=== PATIENT | female | born 1995 | race Caucasian/White ===

== ENCOUNTER 2022-04-03 11:06 | Emergency (ER) | payer MEDICAID, SELFPAY ==
[2022-04-03 11:22] VITALS: BP 129/58; PULSE 100; RESP 18; TEMP 36.3; O2SAT 96; BMI 37.8
--- NOTE | 2022-04-03 11:36 | CRLHL7_ITS ---
For Patients: As a result of the Century Cures Act, medical imaging exams and procedure reports are released immediately into your electronic medical record. You may view this report before your referring provider. If you have questions, please contact your health care provider. Indication: Shortness of breath Technique: Portable AP chest radiograph. Comparison: None. Findings: Mildly reduced lung volumes. No focal pulmonary opacity, pneumothorax, or pleural effusion. Normal cardiac and mediastinal contours. Impression: No acute cardiopulmonary findings. Dictated by Alvin Begreron MD @ 04/03/2022 11:48:47 AM Dictated by: Alvin Bergeron MD @ 04/03/2022 11:48:54 (Electronically Signed)
--- NOTE | 2022-04-03 11:42 | ED_ITS ---
HPI - General Adult General Date Seen: 04/03/22 Chief complaint: Cough Stated complaint: Chest tightness/cough/fever Time Seen by Provider: 04/03/22 11:16 Source: patient History of Present Illness HPI narrative: This 18-year-old who notes 1 week of congestion, cough, shortness of breath and fever up to 102. Her daughter is sick with RSV and also had pneumonia. She says that she is frustrated because it is been a week and she is not getting better. She says she has had problems with asthma in the past when his allergy season. Not aware of any current wheezing. She does not smoke. No other medical history. Stride NyQuil and some other [id number] cough medicine and it does not work. She continues to cough. Related Data Home Medications Medication Instructions Recorded Confirmed No Known Home Medications 04/03/22 04/03/22 Allergies Allergy/AdvReac Type Severity Reaction Status Date / Time No Known Drug Allergies Allergy Verified 04/03/22 11:21 Review of Systems Status of ROS: Reports: 6 or more systems reviewed and unremarkable except as noted in History and below Exam Narrative: Exam Narrative: Vital signs as noted above. In general, an alert, well-appearing patient. Head: Normocephalic, atraumatic. Eyes: Pupils are equal reactive. Extraocular movements are full. Conjunctivae are normal. ENT: Mucous membranes are moist. Throat is normal. Neck: Supple without lymphadenopathy. Heart: Regular rate and rhythm. No murmur or rub. Lungs: Clear bilaterally. No increased work of breathing, crackles or wheezes. Abdomen: Soft and nontender. No organomegaly. Extremities: Well perfused. No edema. No calf tenderness. Pulses intact. Neurologic: Patient is alert and oriented to person and place. Speech is fl uent. Face is symmetric. Moves all extremities equally. Affect: Normal. Skin: Warm and dry. Well perfused. Const: Vital Signs, click to edit/add: Vital Signs - 24 hr 04/03/22 11:22 Temperature 97.4 F L Pulse Rate [Right Pulse Oximeter] 100 Respiratory Rate 18 Blood Pressure [Ri ght Upper Arm] 129/58 L Pulse Oximetry 96 Oxygen Delivery Me thod Room Air Documenting provider has reviewed patient's vital signs: yes Course Course Hospital Course: Afebrile here but reports ongoing high fevers at home, we will go ahead and get a chest x-ray just to make sure that that is clear. Lungs are clear here I do not hear any active wheezing right now but I am going to try a neb here and see if she feels that is helpful for her coughing. If so, she may benefit from albuterol and prednisone at home. She does request something additional for cough at home and we can try Robitussin with codeine although advised her that there is nothing that will likely completely relieve her cough. Symptoms are likely viral and may take another week or even more to completely resolve. Most likely symptoms are caused by RSV will swab for COVID as well. Swabs are still pending. Chest x-ray by my review is negative, final radiology report is negative as well. I do not think this represents pneumonia or other acute bacterial process. She does feel significantly better after a neb here, suggesting that there is a component of bronchospasm. I think she will feel better with albuterol and prednisone at home so will prescribe those. If she is feeling worse rather than better would recommend coming back for re-evaluation, otherwise follow up with primary care if not improving over the expected time frame. Vital Signs Vital signs: Initial Vital Signs Temperature 97.4 F L 04/03/22 11:22 Temperature Source Temporal Artery Scan 04/03/22 11:22 Pulse Rate 100 04/03/22 11:22 Respiratory Rate 18 04/03/22 11:22 Blood Pressure 129/58 L 04/03/22 11:22 Blood Pressure Mean 81 04/03/22 11:22 Blood Pressure Position Sitting 04/03/22 11:22 Pulse Oximetry 96 04/03/22 11:22 Oxygen Delivery Method 04/03/22 11:22 Vital Signs Temperature 97.4 F L 04/03/22 11:22 Pulse Rate 100 04/03/22 11:22 Respiratory Rate 18 04/03/22 11:22 Blood Pressure 129/58 L 04/03/22 11:22 Pulse Oximetry 96 04/03/22 11:22 Oxygen Delivery Method 04/03/22 11:22 Temperature 97.4 F L 04/03/22 11:22 Pulse Rate 100 04/03/22 11:22 Respiratory Rate 18 04/03/22 11:22 Blood Pressure 129/58 L 04/03/22 11:22 Pulse Oximetry 96 04/03/22 11:22 Oxygen Delivery Method 04/03/22 11:22 Discharge Plan Discharge Prescriptions: No Action No Known Home Medications
[2022-04-03] MEDS: ALBUTEROL SULFATE 2.5 MG/3 ML VIAL.NEB NEB (11:50)
[2022-04-03 12:15] LABS: SARS PCR* Negative SARS-CoV-2 (Negative)
[2022-04-03 12:54] LABS: PCR FLU A Negative PCR FLU A (Negative); PCR FLU B Negative PCR FLU B (Negative); PCR RSV POSITIVE PCR RSV (Negative)
== END 2022-04-03 13:04 | disposition home or self-care (01) ==
PROVIDERS: Emergency Provider Emergency Medicine
DX: J98.01 Acute bronchospasm (principal)
CPT/HCPCS: 71045; 87502; 87634; 87635; 94640; 99283; 99284; 99285

== ENCOUNTER 2023-09-16 09:34 | Emergency (ER) | payer MEDICAID, SELFPAY ==
[2023-09-16 09:39] VITALS: BP 126/89; PULSE 93; RESP 18; TEMP 36.8; O2SAT 97; BMI 34.3
--- NOTE | 2023-09-16 10:45 | CT_ITS ---
Patient: ROXIE LANDEROS Facility:?[facility] Patient ID:?[id number] Site Patient ID:?[id number] Site :?[id number] Study:?CT-Abdomen/Pelvis W/ 98CC [id number]/[id number] 11:42:41 AM Ordering Physician:Denisha Shankar Final Report: INDICATION: Right lower/right pelvic pain. pain since surgery 2 weeks ago. (Sic) COMPARISON: None available at the time of this dictation. Reference made to a prior report dated 09/05/2022. TECHNIQUE: CT of the abdomen and pelvis with 98 cc of Isovue 370 intravenous contrast. Please note that all CT scans at this facility use dose modulation, iterative reconstruction, and/or weight-based dosing when appropriate to reduce radiation dose to as low as reasonably achievable. FINDINGS: ABDOMEN Liver: Normal hepatic attenuation. No suspicious focal hepatic lesion. No intrahepatic biliary ductal dilatation. Patent portal and hepatic veins. Gallbladder: Absent gallbladder. Normal common duct caliber. Pancreas: Normal pancreatic attenuation. No focal lesion. Normal duct caliber. No peripancreatic inflammatory changes. Spleen: Normal splenic attenuation. No suspicious focal lesion. Patent splenic artery and vein. Adrenal Glands: Symmetrical adrenal glands. No focal lesion of significance. Kidneys: Normal bilateral renal attenuation. No suspicious focal lesion. No obstructing nephrolith or dilatation of the intrarenal collecting systems. Patent renal arteries and veins. Nondilated upper urinary tracts. Gastrointestinal tract: Normal caliber, attenuation and wall thickness of the gastrointestinal tract. Mild sigmoid diverticulosis without inflammatory changes. Normal mesentery. Normal appendix. Vascular: Abdominal aorta and its major proximal branches including the celiac, superior mesenteric, inferior mesenteric, renal, and bilateral common iliac arteries are patent. Inferior vena cava, portal and superior mesenteric veins are patent. Additional findings: No incidental adenopathy. No significant ascites, free fluid or pneumoperitoneum. PELVIS No bladder lesion is identified. Centrally located T-shaped IUD. No abnormal free fluid. No incidental adenopathy. SKELETON AND BODY WALL No acute or suspicious incidental findings. LOWER THORAX Partially included lower thoracic wall, lungs, pleural spaces and mediastinum are otherwise without significant incidental findings. IMPRESSION: No imaging findings pertinent to the indication for the exam or significant unrelated findings. Normal appendix. Unremarkable uterus and bilateral ovaries. Please note that all CT scans at this facility use dose modulation, iterative reconstruction, and/or weight-based dosing when appropriate to reduce radiation dose to as low as reasonably achievable. Dictated by Collin Degroot MD @ 09/16/2023 12:32:32 PM Signed by:?Collin Degroot MD @09/16/2023 12:32:32 PM (Electronic Signature)
[2023-09-16] MEDS: LACTATED RINGERS 1000 ML 1,000 ML IV (11:17)
[2023-09-16] MEDS: ONDANSETRON 2 MG/ML inj 4 MG IVP (11:17)
[2023-09-16] MEDS: MORPHINE 4 MG/ML INJ IVP ×2 (11:17→13:28)
[2023-09-16 11:18] LABS: Basophils Absolute Auto 0.03 K/uL (0.00-0.30); Basophils Percent Auto 0.3 % (0.0-3.0); Eosinophils Absolute Auto 0.26 K/uL (0.00-0.50); Eosinophils Percent Auto 2.8 % (0.0-7.0); Hematocrit 45.5 % (33.0-51.0); Hemoglobin* 15.1 gm/dL (12.0-16.0); Immature Granulocytes Abs Auto 0.02 K/uL (0.00-0.30); Immature Granulocytes Pct Auto 0.2 %; Lymphocytes Absolute Auto 2.48 K/uL (0.90-2.90); Lymphocytes Percent Auto 26.4 % (20-44); Mean Corpuscular HGB Conc 33 gm/dL (32-36); Mean Corpuscular Hemoglobin 27 pg (26-34); Mean Corpuscular Volume 82 fL (80-100); Monocytes Percent Auto 6.7 % (0.0-11.0); Neutrophils Absolute Auto 5.98 K/uL (1.7-7.0); Neutrophils Percent Auto 63.6 % (42.0-72.0); Platelet Count* 363 K/uL (140-440); RDW Coefficient of Variation % 13.4 % (11.5-15.5); Red Blood Count 5.52 m/uL (4.00-5.20)
[2023-09-16 11:19] LABS: Appearance Urine Slightly Cloudy (Clear); Bilirubin Urine Negative (Negative); Blood Urine 3+ (Negative); Color Urine Yellow (Yellow); Glucose Urine Negative (Negative); Ketones Urine Negative (Negative); Leukocyte Esterase Urine Trace (Negative); Nitrite Urine Negative (Negative); Protein Urine Trace (Negative); Specific Gravity Urine 1.025 (1.000-1.030); Urobilinogen Urine 0.2 (0.2-1.0)
--- NOTE | 2023-09-16 11:21 | ED.ABDPAIN ---
HPI - Abdominal Pain General Date Seen: 09/16/23 Chief Complaint: Abdominal Pain Stated Complaint: lower abdomen pain Time Seen by Provider: 09/16/23 09:37 Source: patient Mode of arrival: ambulatory Limitations: no limitations History of Present Illness HPI narrative: Patient is a 27-year-old female with no pertinent medical problems presenting to the emergency department for right lower abdomen/right pelvic pain it has been going on for quite a while now. She was seen in OB Gyne provider through the [facility] and was told she has inflammation of her right fallopian tube and endometriosis which was removed surgically about 6 weeks ago. She continues to have the same pain without any improvement. She constantly has a 7/10 sharp stabbing pain that occasionally gets much worse causing her to become very nauseated. She has spoken to her surgeon about this and was told the pain in her vaginal bleeding is normal. She is concerned because she would expect spotting after this surgeries but not producing clots. She is hoping for a 2nd opinion in treatment for her pain and nausea. Denies fevers, chills, headache, vision changes, chest pain, shortness of breath, weakness, numbness. No other concerns noted at this time. She has already been through a round of antibiotics. Related Data Previous Rx's Medication Instructions Recorded ondansetron 4 mg disintegrating 4 mg PO Q6H #20 tabs 09/16/23 tablet oxycodone 5 mg tablet 5 mg PO Q6H PRN pain #12 tabs 09/16/23 Allergies Allergy/AdvReac Type Severity Reaction Status Date / Time No Known Drug Allergies Allergy Verified 09/16/23 11:37 Review of Systems Status of ROS Reports: 10 or more systems reviewed and unremarkable except as noted in History and below PFSH PFS Social History Non-prescribed substance use: denies use Exam Narrative: Exam Narrative: Const: Well-nourished, Well-developed, in mild distress Eyes: PERRL, no conjunctival injection, and symmetrical lids HENT: Atraumatic external nose and ears. Moist mucous membranes. Neck: Symmetric, trachea midline, No thyromegaly. CVS: RRR, No murmurs or gallops. Peripheral pulses 2+ and equal in all extremities RESP: Unlabored respiratory effort. Clear to auscultation bilaterally. GI: Nontender/Nondistended, No rebound or guarding. Pelvis: Point tenderness to right pelvic region MSK:Extremities w/o deformity, Normal Active ROM Skin: Warm, Dry. No rashes or lesions. Neuro: Normal Muscle tone, No focal neurological deficits. Psych: Awake, Alert, & Oriented x3. Appropriate mood and affect. Const: Vital Signs, click to edit/add: Vital Signs - 24 hr 09/16/23 09:39 Temperature 98.3 F Pulse Rate [Right Pulse Oximeter] 93 Respiratory Rate 18 Blood Pressure [Ri ght Upper Arm] 126/89 Pulse Oximetry 97 Oxygen Delivery Me thod Room Air Course Vital Signs Vital signs: Initial Vital Signs Temperature 98.3 F 09/16/23 09:39 Temperature Source Temporal Artery Scan 09/16/23 09:39 Pulse Rate 93 09/16/23 09:39 Respiratory Rate 18 09/16/23 09:39 Blood Pressure 126/89 09/16/23 09:39 Blood Pressure Mean 101 09/16/23 09:39 Blood Pressure Position Sitting 09/16/23 09:39 Pulse Oximetry 97 09/16/23 09:39 Oxygen Delivery Method Room Air 09/16/23 09:39 Vital Signs Temperature 98.3 F 09/16/23 09:39 Pulse Rate 93 09/16/23 09:39 Respiratory Rate 18 09/16/23 09:39 Blood Pressure 126/89 09/16/23 09:39 Pulse Oximetry 97 09/16/23 09:39 Oxygen Delivery Method Room Air 09/16/23 09:39 Temperature 98.3 F 09/16/23 09:39 Pulse Rate 93 09/16/23 09:39 Respiratory Rate 18 09/16/23 09:39 Blood Pressure 126/89 09/16/23 09:39 Pulse Oximetry 97 09/16/23 09:39 Oxygen Delivery Method Room Air 09/16/23 09:39 Medications Administered Medications: Discontinued Medications Generic Name Dose Route Start Last Admin Trade Name Freq PRN Reason Stop Dose Admin Lactated Ringer's 1,000 mls @ 1,000 mls/hr 09/16/23 10:45 09/16/23 11:17 Lactated Ringers 1000 Ml IV 09/16/23 11:44 1,000 mls/hr .Q1H ONE Administration Morphine Sulfate 4 mg 09/16/23 10:45 09/16/23 11:17 Morphine 4 Mg/Ml Inj IVP 09/16/23 10:46 4 mg ONCE ONE Administration Ondansetron HCl 4 mg 09/16/23 10:45 09/16/23 11:17 Ondansetron 2 Mg/Ml Inj IVP 09/16/23 10:46 4 mg ONCE ONE Administration MDM - Abdominal Pain MDM Narrative Medical decision making narrative: Patient is a 27-year-old female presenting for right lower abdomen/right pelvic pain. Mostly in the right pelvic region. Pain is for the most part constant ache going on for several months. She has already had surgery for endometriosis and no improvement in the symptoms. She also finished a round of doxycycline 4 days ago. Considering the length of the symptoms and that they were going on and then she had surgery for endometriosis in the continued this seems very unlikely to be a ovarian torsion. I do not believe an ultrasound is necessary. She has said there has been lots of inflammation of her fallopian tube. She was already tested for STDs prior to his surgery in this seems unlikely to be pelvic inflammatory disease or an abscess. A CT scan will be done is look for signs of this. Also ordered CBC, CMP, urinalysis, urine test. Morphine given for pain and also a L of fluids. Zofran for nausea. Lab work returned showing no concerning abnormalities. Urinalysis shows a possible UTI but not overtly definitive. She is not having any urinary symptoms low so will hold off on starting her on antibiotics till the culture comes back. I spoke to her about this and she is in agreement with this plan. CT scan returned showing no acute abnormalities. At this time I cannot say for certain was causing her pain but I did give her information to follow up with the OB Gyne seen here at [facility]. She is agreeable to this. Patient is discharged at this time. Sent home with Zofran and few days of oxycodone. Lab Data Labs: Lab Results 09/16/23 09/16/23 Range/Units 10:58 Unknown WBC 9.40 (4.50-11.00) K/uL RBC 5.52 H (4.00-5.20) m/uL Hgb 15.1 (12.0-16.0) gm/dL Hct 45.5 (33.0-51.0) % MCV 82 (80-100) fL MCH 27 (26-34) pg MCHC 33 (32-36) gm/dL RDW Coeff of Onel 13.4 (11.5-15.5) % Plt Count 363 (140-440) K/uL Neut % (Auto) 63.6 (42.0-72.0) % Lymph % (Auto) 26.4 (20-44) % [place] % (Auto) 6.7 (0.0-11.0) % Eos % (Auto) 2.8 (0.0-7.0) % Baso % (Auto) 0.3 (0.0-3.0) % Neut # (Auto) 5.98 (1.7-7.0) K/uL Lymph # (Auto) 2.48 (0.90-2.90) K/uL [place] # (Auto) 0.60 (0.00-0.90) K/UL Eos # (Auto) 0.26 (0.00-0.50) K/uL Baso # (Auto) 0.03 (0.00-0.30) K/uL Abs Immat Gran (auto) 0.02 (0.00-0.30) K/uL Imm/Tot Granulo (auto) 0.2 % Sodium 141 (135-149) mmol/L Potassium 3.8 (3.6-5.1) mmol/L Chloride 107 (96-114) mmol/L Carbon Dioxide 25 (20-32) mmol/L Anion Gap 9 (7-15) mEq/L BUN 8 (5-24) mg/dL Creatinine 0.6 (0.5-1.5) mg/dL Estimated Creat Clear 119.47 Estimated GFR 125 ml/min Glucose 96 (60-115) mg/dL Calcium 9.4 (8.4-10.6) mg/dL Urine Color Yellow (Yellow) Urine Appearance Slightly Cloudy A (Clear) Urine pH 7.0 (5.0-8.5) Ur Specific [place] 1.025 (1.000-1.030) Urine Protein Trace A (Negative) Urine Glucose (UA) Negative (Negative) Urine Ketones Negative (Negative) Urine Blood 3+ A (Negative) Urine Nitrite Negative (Negative) Urine Bilirubin Negative (Negative) Urine Urobilinogen 0.2 (0.2-1.0) Ur Leukocyte Esterase Trace A (Negative) Urine RBC 10-25 A (0-2) Urine WBC 10-25 A (0-5) Ur Squamous Epith Cells Few (None-Few) Urine Bacteria Moderate A (None) Urine HCG, Qual Negative (Negative) Imaging Data CT scan abdomen and pelvis: Attestation: I have reviewed the pertinent imaging results. Radiologist's impression: No imaging findings pertinent to the indication for the exam or significant unrelated findings. Normal appendix. Unremarkable uterus and bilateral ovaries. Please note that all CT scans at this facility use dose modulation, iterative reconstruction, and/or weight-based dosing when appropriate to reduce radiation dose to as low as reasonably achievable. Dictated by Collin Degroot MD @ 09/16/2023 12:32:32 PM Discharge Plan Discharge Clinical Impression: Pelvic pain Patient Disposition: Home, Self-Care Condition: Stable Instructions: Pelvic Pain in Women (ED) Additional Instructions: Take Tylenol and ibuprofen for pain. If that is not helping he can drive the oxycodone. You will not be able to get further oxycodone prescriptions this emergency department. Take Zofran as needed for nausea. Return to emergency department for new or worsening symptoms. You can follow-up with [facility] of [facility]. Prescriptions: New ondansetron 4 mg tablet,disintegrating 4 mg PO Q6H Qty: 20 0RF oxycodone 5 mg tablet 5 mg PO Q6H PRN (Reason: pain) Qty: 12 0RF Follow Up/Referrals: Provider,Not a Local [Primary Care Provider] - Stand Alone Forms: [email or web address] Info Instructions
[2023-09-16 11:22] LABS: Ur HCG Qualitative* Negative (Negative)
[2023-09-16 11:22] LABS: Slide Review Reflex No
--- OUTSIDE RECORDS SUMMARY | 2023-09-16 11:23 | XMS_ITS | Clinical Summary ---
Author Name Unknown Organization [facility] Address [address] [place] [address] Care Team Providers Care Manufacturing Test Technician Name Role Phone Jovita Salazra D.O., M.S. Primary Care Provide r Source Comments Patient records contain information from all sites at [facility]. For routine questions regarding patient records, call [phone] during business hours, M-F 8:00 AM - 5:00 PM Central Time. Record requests for emergency care only can be directed to [phone] at any time.[facility] Allergies Active Allergy Reactions Criticality Noted Date Comments Diphenhydramine Other (see comments) 10/20/2015 panic Feels like heavy in chest - both po and IV Grass Pollen-Red Top, Standard Cough 12/16/2014 Itchy watery eyes Pollen Extracts Other (see comments) 12/16/2014 Itchy watery eyes Medications Medication Sig Dispensed Refills Start Date End Date Status omega 6-wmc-cuj-fish oil (fish oil) 100-160-1,000 mg capsule Take 1 capsule by mouth daily. 12/22/2015 Active SUMAtriptan (IMITREX) 6 mg/0.5 mL injection Inject 6 mg under the skin as needed. 05/02/2017 Active icatibant (FIRAZYR) 30 mg/3 mL injection Inject subcutaneous once daily if needed. 06/01/2016 Active EPINEPHrine 0.3 mg/0.3 mL injection syringe Inject 0.3 mg intramuscularly. 05/01/2017 Active acetaminophen (TYLENOL) 500 mg tablet Take 2 tablets (1,000 mg total) by mouth every 6 (six) hours. 05/20/2021 Active multivitamin-iro n-FA (CENTRUM COMPLETE) 18-400 mg-mcg per tablet Take 1 tablet by mouth daily. Active cyclobenzaprine (FLEXERIL) 10 mg tabletIndication s:Mass Adnexal Take 1 tablet (10 mg total) by mouth 3 (three) times a day as needed for muscle spasms. 30 tablet 04/11/2023 Active Additional Information Patient not taking.Reported on 08/31/2023 phentermine 15 mg capsule Take 1 capsule (15 mg total) by mouth every morning. 30 capsule 08/03/2023 Active Additional Information Patient not taking.Reported on 08/31/2023 levonorgestreL (MIRENA) 21 mcg/24 hours (8 yrs) 52 mg IUD 1 each by intrauterine route continuously. Active oxyCODONE (ROXICODONE) 5 mg immediate release tabletIndication s:Acute Pain Take 1 tablet (5 mg total) by mouth every 4 (four) hours as needed for severe pain or score 7-10 of 10 Indication: Acute Pain. 5 tablet 08/14/2023 Active Additional Information Patient not taking.Reported on 08/31/2023 tirzepatide (Zepbound) 5 mg/0.5 mL injectionIndicat ions:Body Mass Index 35.0 To 35.9 Adult Inject 5 mg under the skin every 7 (seven) days. 2 mL 2 09/06/2023 4 Active tirzepatide (Zepbound) 2.5 mg/0.5 mL injectionIndicat ions:Body Mass Index 35.0 To 35.9 Adult Inject 2.5 mg under the skin every 7 (seven) days. 2 mL 2 09/15/2023 Active tirzepatide (ZEPBOUND) 2.5 mg/0.5 mL injectionIndicat ions:Body Mass Index 35.0 To 35.9 Adult Inject 2.5 mg under the skin every 7 (seven) days. 2 mL 2 07/12/2023 4 Discontinued (Reorder) doxycycline monohydrate (MONODOX) 100 mg capsule Take 1 capsule (100 mg total) by mouth 2 (two) times a day before breakfast and dinner for 14 days. 28 capsule 08/13/2023 4 doxycycline monohydrate (MONODOX) 100 mg capsule Take 1 capsule (100 mg total) by mouth 2 (two) times a day before breakfast and dinner for 14 days. 28 capsule 08/31/2023 4 Active Problems Patient Care Coordination No te Formatting of this note migh t be different from the original. 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 HPV series complete? Flu Shot: Rhogam: Tdap: Rubella/Varicella status: 28 week labs: PHQ 9: GBS: Pap smear due? Labor/Delivery Plan: Delivery Date: Contraception plan: : DVT prophylaxis indicated: Tests to be ordered: Education: NOB - Early - local Mid - Late - Problem Noted Date Diagnosed Date Pelvic And Perineal Pain 06/22/2023 Mass Adnexal 04/07/2023 Overview: 03/2023-CT scan recommended 8 week follow-up for left adnexal mass Toradol and flexeril sent in for short term Follow up appointment with [facility] [employer] [facility] 04/20 Nephrolithiasis 03/02/2023 Body Mass Index 35.0 To 35.9 Adult 03/02/2023 Last Assessment & Plan: Tirzepatide: reduces fasting and postprandial blood glucose by stimulating insulin secretion and lowering glucagon secretion. Regulator of appetite and caloric intake. For Weight loss Side Effects: Report symptoms of pancreatitis or renal failure. Report changes in vision. Report symptoms of gallbladder disease. Maintain adequate hydration to prevent renal failure. Side effects may include nausea, vomiting, diarrhea, abdominal pain, decreased appetite, and constipation Monitor for symptoms of hypoglycemia and report difficulties with glycemic control. Report worsening depression, suicidal ideation, or unusual changes in behavior. Report any increase in heart rate or heart palpitations while resting. Abnormal Uterine And Vaginal Bleeding Unspecifie d 03/02/2023 Polycystic Ovary Syndrome 03/02/2023 Last Assessment & Plan: Metformin r/b/a discussed. Will trial for weight, PCOS mgmnt F/u with me after [facility] [employer] [facility] appt Dysmenorrhea 12/28/2022 Overview: Reports abnormal menstrual cycles since her D&C in 2021. Gets bimonthly menses that is heavy with clots and lasts 4-5 days each. [facility] [facility] consult pending CT scan 03/27/2023: New 3.9 cm cystic left adnexal lesion with likely dependent hyperattenuating debris, favored to represent hemorrhagic cysts. Recommend pelvic ultrasound in 8 weeks to document resolution. Toradol prn Flexeril prn Last Assessment & Plan: Patient reports she is coming off her cycle, but will obtain a beta hcg Impaired Fasting Glucose 12/28/2022 Last Assessment & Plan: Did not tolerate metformin Depression Anxiety 12/28/2022 Attention Deficit Hyperactive Disorder 3 Migraine Headache 12/27/2022 Overview: Only one migraine since . Stable. Sumatripatin prn. Stone Kidney Personal History 12/27/2022 Overview: 2020 ureteroscopy with stone extraction. Stone analysis showed calcium oxalate and calcium phosphatase. Three stone episodes since. Followed with Urology on 09/06/2022 at [facility] d/t stone stent and lithotripsy. Urology follow up ordered here Asthma Mild Intermittent 01/15/2021 Overview: Bronchospasms with autoimmune disorder. Stable. Has not needed albuterol inhaler for 4-5 years. Angioedema Hereditary 12/18/2020 Overview: Hereditary angioedema type III Being followed by MFM as well as Genetic counselor MFM recommendations: 1. Repeat TSH level every trimester, with initiation of levothyroxine therapy (if required) to achieve trimester-specific target ranges. 2. Detailed anatomic survey ultrasound 18-20 wks (completed), with repeat every 4 weeks to assess interval growth. 3. Anesthesiology consultation at 18-20 weeks (completed). 4. Initiate weekly surveillance at 32 weeks. 5. Presuming no antepartum maternal or complications, delivery (in [place]) if the achieves 39-40 weeks gestation. Plan return visits to [place] at 34-36 weeks, and delivery at 39-40 weeks in [place] for any acute angioedema episode with potential airway compromise: 1: Visualization of the endolarynx in order to establish and confirmed that laryngeal edema is present 2: Administration of an initial dose of 30 mg of icatibant (Firazyr) subcutaneously (abdomen), with follow-up visualization of the larynx at 30 and 60 minutes, and if significant abatement of the swelling is not documented, then administration of a second dose of icatibant 30 mg subcutaneously 3: If revisualization of the larynx at 30-60 minutes later fails to show obvious reduction in swelling after the second dose of icatibant, then cutting off bradykinin formation by administration of a dose of ecallantide (Kalbitor) should be the next step. Last Assessment & Plan: Thyroiditis Jennifer's 12/18/2020 Overview: Hx of fatigue. TSH monitored in past without treatment indicated.. Thyroid levels ordered. Resolved Problems Problem Noted Date Diagnosed Date Resolved Date Section Delivery 05/17/2021 Overview: The patient was admitted to the [facility] for a scheduled primary . Her was complicated by obesity, hypothyroidism, history of a previous demise and history of hereditary angioedema. She did not labor. She had a primary delivery, delivering a liveborn female with weight of 3.49 kg . Gestational age: 37w4d. occurred: 05/18/2021 , 8:36 AM Both mother and baby were in stable condition at the conclusion of the procedure. When the patient met appropriate criteria, she was transferred to the floor. The remainder of her course was uncomplicated. She received her care at [facility]. High Risk 05/06/2021 12/28/19 23 Care And Lactating 10/21/2020 12/27/2022 Overview: Status post RN obstetric education Normal OB exam, routine labs completed. Mental health history includes anxiety, depression, and ADHD, no current medications. We discussed her mental health in detail, she feels that she is stable now but it does have concerns for potentially worsening mood state during , I am recommending that she establish care with therapy for this. Patient has hereditary angioedema, takes Icatibant injections PRN for this, reviewed safety profile for this medication unknown, recommended she meet with her angioedema specialist and discussed management in in detail. She has also been referred to genetic counseling. Patent using medical marijuana, risks discussed as following: The effects of marijuana on are not well understood. Studies have been inconclusive, particularly because of confounders including tobacco and alcohol use, and socioeconomic status. The use of THC may impact brain development and function. Studies of children who were exposed to marijuana in utero have been found to have lower scores on tests of visual problem solving, visual-motor coordination, and visual analysis than children who were not exposed to marijuana in utero. However, another study found no significant effect on several measures of cognition and school performance. There is no evidence for increases risks of structural defects. There is an association between THC use and risk for low weight, though there is no association for increased risk for . There are no established recommendations regarding the use of medical marijuana during , and given an uncertain safety profile, it is generally discouraged. However, if THC is used, routes of administration other than smoking would be preferred. Contraception plans: Patient reports that she has had side effects with combined hormonal contraception in the past, she does desire future though plans significant spacing, possible LARC Intrauterine Personal History 10/21/2020 12/27/2022 Overview: History of 3rd trimester IUFD, patient believes that was caused by an abruption though reports growth restriction prior to demise, delivery was induced. Family history notable for sister with 1 kidney and didelphys uterus. Previous MFM consultation (Tejeda 2018) reports negative antiphospholipid antibody syndrome evaluation and no evidence of a mullerian anomaly. Recommendations as detailed in angioedema section. Encounters Date Type Department Care Team Description 09/15/2023 Nurse Triage Department of Family Medicine, [facility], in [place], [place] [address] [address] Marylu De La Cruz, Hari 09/15/2023 Refill Department of [facility], [facility], in [place], [place] [address] [address] Jovita Salazar D.O., M.S. Med Refill 09/15/2023 Clinical Communication Department of Family [facility], [facility], in [place], [place] [address] [address] Jovita Salazar D.O., M.S. Communication 09/01/2023 Clinical Communication Department of Rehabilitation Services in [place], [place] [address] [phone] Mariluz Merritt P.T. 09/01/2023 Refill Department of [facility], [facility], in [place], [place] [address] [address] Jovita Salazar D.O., M.S. Med Refill 08/31/2023 11:00 AM CDT Office Visit Department of Obstetrics and Gynecology in [place], [place] [address] [address] Chalino Mata M.D. Pelvic And Perineal Pain (Primary Dx) Discharge Disposition: Home or Self Care 08/30/2023 Clinical Communication Department of Obstetrics and Gynecology in [place], [place] [address] [place] [address] Yvonne Tam, RKeaton Nurse Assessment (Post op) 08/14/2023 Orders Only Department of Obstetrics and Gynecology in [place], [place] [address] [address] Jenn Fam D.O. 08/11/2023 9:15 AM CDT Anesthesia Event [facility] in [place], [place] [address] [address] Milton Chamberlain M.D. Panchamia, Jason K, D.O. 08/11/2023 9:01 AM CDT - 08/11/2023 11:46 AM CDT Surgery [facility] in [place], [place] [address] [address] Chalino Mata M.D. HYSTEROSCOPY, CHROMOPERTUBATION, RANDOM PERITONEAL BIOPSIES 08/11/2023 8:50 AM CDT Ancillary Procedure Department of General Surgery 08/11/2023 8:06 AM CDT - 08/11/2023 12:16 PM CDT Hospital Encounter [facility] in [place], [place] [address] [address] Chalino Mata M.D. Pelvic And Perineal Pain; Abnormal Uterine And Vaginal Bleeding Unspecified Discharge Disposition: Home or Self Care 07/27/2023 10:15 AM RESEARCH ENGINEER Office Visit Department of Obstetrics and Gynecology in [place], [place] [address] [address] Chalino Mata M.D. Preventive Gynecological Exam (Primary Dx); Deep Dyspareunia; Polycystic Ovary Syndrome; Obesity Body Mass Index 30-39.9 Adult Discharge Disposition: Home or Self Care 07/24/2023 Clinical Communication Department of Family Medicine, [facility], in [place], [place] [address] [address] Jovita Salazar D.O., M.S. Rx Prior Authorization (Zepbound); Rx Denial (ZEPBOUND ) 07/12/2023 Clinical Communication Department of Family Medicine, [facility], in [place], [place] [address] [address] Jovita Salazar D.O., M.S. Rx Prior Authorization (Mounjaro) 07/11/2023 Orders Only Department of Family Medicine, [facility], in [place], [place] [address] [address] Jovita Salazar D.O., M.S. 06/29/2023 2:00 PM RESEARCH ENGINEER Office Visit Department of Family Medicine, [facility], in [place], [place] [address] [phone] Jovita Salazar D.O., M.S. Body Mass Index 35.0 To 35.9 Adult (Primary Dx); Polycystic Ovary Syndrome Discharge Disposition: Home or Self Care 06/22/2023 Orders Only Department of Obstetrics and Gynecology in [place], [place] [address] [place] [phone] Chalino Mata M.D. Pelvic And Perineal Pain (Primary Dx); Abnormal Uterine And Vaginal Bleeding Unspecified from Last 3 Months Immunizations Name Administration Dates Next Due 4vHPV (discontinued) 06/12/2008,01/31/2008,11/21 Td Preservative Free (TENIVAC, DECAVAC) 10/08/19 07 Tdap 03/19/2021,12/20/2012 Family History Medical History Relation Name Comments No Known Problems Brother Depression Father No Known Problems Maternal Grandfather Multiple sclerosis Maternal Grandmother Depression Mother Diabetes Mother Cancer of intestine Paternal Grandmother Thyroid disease Paternal Grandmother Diabetes Sister Relation Name Status Comments Brother Alive Father Alive Maternal Grandfather Alive Maternal Grandmother Mother Alive Paternal Grandfather Other don't k now Paternal Grandmother Alive Sister Alive Social History Tobacco Use Types Packs/Day Years Used Date Smoking Tobacco: Never Passive Smoke Exposure: Never Smokeless Tobacco: Never Tobacco Cessation:Counseling Given: Not Answered Alcohol Use Standard Drinks/Week Comments Not Currently 0 (1 standard drink = 0.6 oz pur e alcohol) Humiliation, Afraid, Rape, and Kick questionnair e Answer Date Recorded Within the last year, have y ou been afraid of your partner or ex-partner? No 12/27/2022 Within the last year, have y ou been humiliated or emotionally abused in other ways by your partner or ex-partner? No Within the last year, have y ou been kicked, hit, slapped, or otherwise physically hurt by your partner or ex-partner? No 12/27/2022 Within the last year, have y ou been raped or forced to have any kind of sexual activity by your partner or ex-partner? No 12/27/2022 Overall Financial Resource Strain (CARDIA) Answe r Date Recorded How hard is it for you to pa y for the very basics like food, housing, medical care, and heating? Somewhat hard 12/27/2022 PHQ-2 Answer Date Recorded PHQ-2 Score 0 06/29/2023 Exercise Vital Sign Answer Date Recorde d On average, how many days pe r week do you engage in moderate to strenuous exercise (like a brisk walk)? 2 days 12/27/2022 On average, how many minutes do you engage in exercise at this level? 30 min 12/27/2022 Hunger Vital Sign Answer Date Recorded Within the past 12 months, y ou worried that your food would run out before you got the money to buy more. Never true 12/28/19 Within the past 12 months, t he food you bought just didn't last and you didn't have money to get more. Never true 12/27/2022 PRAPARE - Transportation Answer Date Re corded In the past 12 months, has l ack of transportation kept you from medical appointments or from getting medications? No 12/2022 In the past 12 months, has l ack of transportation kept you from meetings, work, or from getting things needed for daily living? No 12/27/2022 Depression Answer Date Recor ded PHQ-9 Total Score (max 27) 8 03/19 Nutrition Answer Date Recorded Nutrition: EVOO Fat Source Unknown 12/27 On average, how many serving s of fruits and vegetables do you eat per day (serving size is equal to 1 cup or approximately the size of a tennis ball)? 3-5 12/27/2022 Dental Answer Date Recorded Dental: Regular Dentist No 12/28/19 Employment Answer Date Recorded Employment status Employed and actively working without restrictions 12/27/2022 Housing Stability Answer Date Recorded What is your living situation today? I have a [facility] place to live 12/27/2022 Sex and Gender Information Value Date Recorded Sex Assigned at Female 12/27/2022 12:50 AM CDT Gender Identity Female 12/27/2022 12:50 AM CDT Sexual Orientation Straight 12/27/2022 12 :50 AM CDT Last Filed Vital Signs Vital Sign Reading Time Taken Comments Blood Pressure 107/74 08/31/2023 10:42 AM CDT Pulse 89 08/31/2023 10:42 AM CDT Temperature 37 ??C (98.6 ??F) 08/11/2023 11:15 AM CDT Respiratory Rate 24 08/11/2023 12:00 PM CDT Oxygen Saturation 95% 08/11/2023 12:00 PM CDT Inhaled Oxygen Concentration - - Weight 93.6 kg (206 lb 5.6 oz) 08/31/2023 10:42 AM CDT Height 167 cm (5' 5.75) 07/27/2023 10:00 AM RESEARCH ENGINEER Body Mass Index 33.56 07/27/2023 10:00 AM RESEARCH ENGINEER Plan of Treatment Upcoming Encounters Date Type Department Care Team (Latest Contact Info) Description 10/09/2023 9:45 AM CDT Comprehensive Visit Department of Endocrinology in [place], [place] [address] [place] [address] Fidencio Ojeda M.D. [address] [place] [phone] Discharge Disposition: Home or Self Care Health Maintenance Due Date Last Done Comments COVID-19 Vaccine (#1) 1998 Pneumococcal vaccine (0-64 y ears) (1 of 2 - PCV) 10/28/1999 Hepatitis B Vaccines (1 of 3 - 19+ 3-dose series) 2012 Influenza Vaccine (#1) 2023 Asthma Control Test Questionnaire 12/28/2023 023 Asthma Management/Exacerbati on Questionnaire (AMQ/AEQ) 12/28/2023 12/27/2022 Asthma Action Plan 12/30/2023 12/29/2022, 12/27/2022 Fasting Glucose for Diabetes Screening 01/26/2024 01/25/2023, 01/06/2023, 01/06/2023, Additional history exists Cervical Cancer Screening 07/26/20262023, 07/27/2023, 11/25/2021 (Performed elsewhere) DTaP,Tdap,and Td Vaccines (4 - Td or Tdap) 03/19/2031 03/19/2021, 12/20/2012, 10/07/2006 HPV Vaccines Completed 06/12/2008, 01/20, 11/22/2007 HIV Screening Completed 10/20/2020 Hepatitis C Screening Completed 10/20/2020 Depression Screening (Annual PHQ-2) Completed 06/29/2023, 06/29/2023 Medical Devices Implanted Type Area Machine Cloth Measurer Device Identifier Shelf Expiration Date Model / Serial / Lot Hardware E.G. Pins/Screws/Tom s Hardware e.g. pins/screws/tom s Left: Knee Description:Screws Mirena 21 Mcg/24 Hours (8 Yrs) 52 Mg Intrauterine Device - [id number] - [id number] Implanted:Qty: 1 on 08/11/2023 by Chalino Mata M.D. at [facility] Intrauterine Device Gissel [id number] 05/21/2025 80388-72 07-20 [id number] / [id number] Explanted Type Area Machine Cloth Measurer Device Identifier Shelf Expiration Date Model / Serial / Lot Stent Other Stent Other Liver Stent Other Stent Other Pancreas Procedures Procedure Name Priority Date/Time Associated Diagnosis Comments VAGINITIS PANEL Routine 08/31/2023 11:09 AM CDT Pelvic And Perineal Pain ADULT OXYGEN THERAPY Routine 08/11/2023 10:42 AM CDT SURGICAL PATHOLOGY Routine 08/11/2023 10 :07 AM CDT Pelvic And Perineal Pain Abnormal Uterine And Vaginal Bleeding Unspecified LDA ANE ENDOTRACHEAL AIRWAY Routine 08/11/2023 9:23 AM CDT DIAGNOSTIC LAPAROSCOPY 08/11/2023 8:55 AM CDT Pelvic And Perineal Pain Abnormal Uterine And Vaginal Bleeding Unspecified PLACEMENT MIRENA INTRAUTERINE DEVICE 08/11/2023 8:55 AM CDT Pelvic And Perineal Pain Abnormal Uterine And Vaginal Bleeding Unspecified HYSTEROSCOPY 08/11/2023 8:55 AM CDT Pelvic And Perineal Pain Abnormal Uterine And Vaginal Bleeding Unspecified GENERAL SURGERY IMAGE EXAM Routine 08/11/2023 8:50 AM CDT THINPREP W/HPV CO-TEST DIAGNOSTIC Routine 07/27/2023 10:25 AM RESEARCH ENGINEER Preventive Gynecological Exam HPV WITH GENOTYPING, PCR, THINPREP Routine 07/27/2023 10:25 AM RESEARCH ENGINEER CHLAMYDIA/GONORRHOEA E AMPLIFIED RNA Routine 07/27/2023 10:25 AM RESEARCH ENGINEER Preventive Gynecological Exam VAGINITIS PANEL Routine 07/27/2023 10:25 AM RESEARCH ENGINEER Preventive Gynecological Exam BASIC METABOLIC PANEL, S/P STAT 01/25/2023 10:59 AM CDT HCV AB SCRN W/REFLEX TO HCV PCR, S Routine 10/20/2020 5:01 PM CDT Examination Other Normal First Trimester HIV-1/-2 AG AND AB SCRN, PLASMA Routine 10/20/2020 5:01 PM CDT Examination Other Normal First Trimester from Last 3 Months or Most Recently Relevant to Health Maintenance Results * Vaginitis Panel (08/31/2023 11:09 AM CDT) Only the most recent of2 resultswithin the time period is included. Rosa Maria species, DNA Negative Negative 08/31/2023 12:37 PM CDT AUST Gardnerella vaginalis, DNA Negative Negative 08/31/2023 12:37 PM CDT [facility] Trichomonas vaginalis, DNA Negative Negative 08/31/2023 12:37 PM CDT [facility]UST Swab (Vagina) 08/31/2023 11: 09 AM CDT 08/31/2023 11:13 AM CDT Chalino Mata M.D. LAB MICROBIOLOGY - G ENERAL ORDERABLES [facility] [address] [place] [address], [facility] [address] [place] [address] * Surgical Pathology (08/11/2023 10:07 AM CDT) 08/14/2023 1:06 PM CDT MKTO Report electronically signed by Simon Fritz MD 08/14/2023 1:06 PM CDT MKTO Specimen Received A. Peritoneum biopsy 08/14/2023 1:06 PM CDT MKTO Clinical History Pelvic and peritoneal pain, abnormal uterine and vaginal bleeding 08/14/2023 1:06 PM CDT MKTO Gross Description Submitted as peritoneal biopsy and consists of two calvin tissue fragments aggregating to 2 cm. ??ESB, one cassette. adz/dms 08/14/2023 1:06 PM CDT MKTO Interpretation FINAL DIAGNOSIS Peritoneum biopsies: ??Peritoneum with focal subserosal non-specific extravasated blood. COMMENT : ??Despite initial deeper sections there is no evidence for endometriosis in this submitted specimen. 08/14/2023 1:06 PM CDT MKTO Tissue (Peritoneum) 08/11/2023 10:07 AM CDT Chalino Mata M.D. LAB SURG PATH ORDERA BLES Performing Organization Address City/State/[facility] Co de Phone Number [facility] [address] [place] [address] MKTO [facility] [place] [address] * LDA ANE ENDOTRACHEAL AIRWAY (08/11/2023 9:23 AM CDT) Narrative Erika Mendosa APRN, CRNA, DNAP - 08/11/2023 9:23 AM CDT Erika Mendosa APRN, CRNA, DNAP ? 08/11/2023 ??9:28 AM Airway Date/Time: 08/11/2023 9:23 AM Performed by: Erika Mendosa APRN, CRNA, DNAP Authorized by: Milton Chamberlain M.D. ?? Patient location during procedure: OR / Procedure Area PROCEDURE DETAILS: Mask difficulty assessment: easy mask Final airway type: video laryngoscope Laryngeal Manipulation: no ?? Final best view of glottic structures - Cormack/Lehane Score: grade 2A ETT location: oral VL device: glide scope [place] scope blade size: 3 Tube size: 7 ETT distance at teeth/gum: 22 Oral tube type: standard ETT Cuffed: yes Leak Test Performed: no ?? Number of attempt to successful placement: 1 Airway confirmation: bilateral breath sounds, positive ETCO2 and bilateral chest rise Other previous techniques attempted: none PRE PROCEDURE DETAILS: Pre evaluation for airway management: procedure Urgency: elective Preop assessment of probable difficulty: questionable / suspicious difficult airway Preoxygenation: bag valve mask SEDATION / ANESTHESIA Anesthesia method: anesthesia POST PROCEDURE DETAILS: ? Procedure outcome: successful ?? Notable Events: no complications Milton Chamberlain M.D. ANESTHESIA ORDERABLE S * General Surgery Image Exam-General Surgery Image Exam (08/11/2023 8:50 AM CDT) 08/11/2023 8:46 AM CDT Narrative IIMS - 08/11/2023 10:37 AM CDT This order has been created and auto-finalized to support the import of images acquired without order. The clinical documentation to support these images can be found on the encounter that produced images. Provider Not In System IMG NON RAD IMAGI NG PROCEDURES IIMS NA * ThinPrep w/HPV Co-Test Diagnostic (07/27/2023 10:25 AM RESEARCH ENGINEER) 07/31/2023 3:11 PM CDT HK Report electronically signed by TEMITOPE Jett(ASCP) I verify that I have examined all relevant slides/materials for the specimen(s) and rendered or confirmed the diagnosis. 07/31/2023 3:11 PM CDT [facility] Gross Description Received specimen in a ThinPrep vial. 07/31/2023 3:11 PM CDT [facility] Pap Test Source Cervical/Endocervi naomi 07/31/2023 3:11 PM CDT [facility] Hormone Therapy/Contracep tives None/Not known 07/31/2023 3:11 PM CDT [facility] Interpretation Cervical/Endocervi naomi ??(ThinPrep): Satisfactory for Evaluation Negative for Intraepithelial Lesion or Malignancy High Risk HPV: ??Negative Negative for High Risk HPV by nucleic acid amplification. The following High Risk HPV types were not detected: 16, 18, 31, 33, 35, 39, 45, 51, 52, 56, 58, 59, 66, and 68. 07/31/2023 3:11 PM CDT [facility] Thin Prep Vial (Cervix/Endocerv ix) 07/27/2023 10:25 AM RESEARCH ENGINEER 07/28/2023 7:39 AM RESEARCH ENGINEER Chalino Mata M.D. LAB PAP PATHDX ORDER MALOCLM [facility] CYTOLOGY [address] [place] [address], [facility]CY [address] [address] * HPV with Genotyping, PCR, ThinPrep (07/27/2023 10:25 AM RESEARCH ENGINEER) HPV with Genotyping, ThinPrep, PCR Negative Negative 07/28/2023 3:42 PM RESEARCH ENGINEER MKTO Comment: Negative for high risk HPV by nucleic acid amplification. ??The following high risk HPV types were not detected: 16, 18, 31, 33, 35, 39, 45, 51, 52, 56, 58, 59, 66, and 68 This result does not rule out HPV in the patient, as the sensitivity of the test depends on the timing of the specimen collection and the quality of the specimen. Result should be correlated with patient's history, clinical presentation, and [employer] cytology report. 07/27/2023 10:2 5 AM RESEARCH ENGINEER 07/28/2023 7:39 AM RESEARCH ENGINEER Chalino Mata M.D. LAB MICROBIOLOGY - G ENERAL ORDERABLES Performing Organization Address City/[facility]/ZIP Co de Phone Number [facility] [address] [place] [address], [place] MKTO [facility] [address] * Chlamydia / Gonorrhoeae Amplified RNA (07/27/2023 10:25 AM RESEARCH ENGINEER) Source Thin Prep Vial, Cervix/Endoc ervix 07/28/2023 3:05 PM RESEARCH ENGINEER MKTO Chlamydia trachomatis amplified RNA Negative Negative 07/28/2023 3:05 PM RESEARCH ENGINEER MKTO Source Thin Prep Vial, Cervix/Endoc ervix 07/28/2023 3:05 PM RESEARCH ENGINEER MKTO Neisseria gonorrhoeae amplified RNA Negative Negative 07/28/2023 3:05 PM RESEARCH ENGINEER MKTO Thin Prep Vial (Cervix/Endocerv ix) 07/27/2023 10:25 AM RESEARCH ENGINEER 07/28/2023 10:19 AM RESEARCH ENGINEER Chalino Mata M.D. LAB MICROBIOLOGY - G ENERAL ORDERABLES [facility] [place] [address], [facility] MKTO [address] [place] [address] * Basic Metabolic Panel (01/25/2023 10:59 AM CDT) Potassium, P 4.3 3.6 - 5.2 mmol/L 01/25/2023 11:32 AM CDT [facility] Sodium, P 140 135 - 145 mmol/L 01/25/2023 11:32 AM CDT [facility] Chloride, P 106 98 - 107 mmol/L 01/25/2023 11:32 AM CDT [facility] Bicarbonate, P 24 22 - 29 mmol/L 01/25/2023 11:32 AM CDT [facility] Anion Gap, P 10 7 - 15 01/25/2023 11:32 AM CDT [facility] BUN (Blood Urea Nitrogen), P 10 6 - 21 mg/dL 01/25/2023 11:32 AM CDT [facility] Creatinine 0.73 0.59 - 1.04 mg/dL 01/25/2023 11:32 AM CDT [facility] Estimated GFR (eGFR) >90 >=60 mL/min/BSA 01/25/2023 11:32 AM CDT [facility] Comment: Estimated GFR calculated using the 2020 CKD_EPI creatinine equation. Calcium, Total, P 9.2 8.6 - 10.0 mg/dL 01/25/2023 11:32 AM CDT [facility] Glucose, P 94 70 - 140 mg/dL 01/25/2023 11:32 AM CDT [facility] Blood (Blood, Venous) 01/25/2023 10:59 AM CDT 01/25/2023 11:32 AM CDT Ashanti Griffith M.D., M.S. LAB BLOOD AD D-ON Performing Organization Address City/[facility]/ZIP Co de Phone Number [facility] [address] [place] [address], [facility] AUST [facility] Lab - [facility] [address] [place] [address] * HIV-1/-2 Ag and Ab Scrn, Plasma (10/20/2020 5:01 PM CDT) HIV Ag/Ab Scrn, P Negative Negative 10/21/2020 3:54 PM CDT [facility] Comment: Negative result does not rule out HIV infection. If exposure to HIV infection occurred <14 days ago, contact the laboratory to request addition of HIV-1 RNA detection / quantification test. HIV-1 p24 Ag Scrn, P Negative Negative 10/21/2020 3:54 PM CDT [facility] Comment: Negative result does not rule out HIV infection. If exposure to HIV infection occurred <14 days ago, contact the laboratory to request addition of HIV-1 RNA detection / quantification test. HIV-1 Ab Scrn, P Negative Negative 10/21/2020 3:54 PM CDT [facility] Comment: Negative result does not rule out HIV infection. If exposure to HIV infection occurred <14 days ago, contact the laboratory to request addition of HIV-1 RNA detection / quantification test. HIV-2 Ab Scrn, P Negative Negative 10/21/2020 3:54 PM CDT [facility] Comment: Negative result does not rule out HIV infection. If exposure to HIV infection occurred <14 days ago, contact the laboratory to request addition of HIV-1 RNA detection / quantification test. Blood (Blood, Venous) 10/20/2020 5:01 PM CDT 10/21/2020 11:13 AM CDT Ryan Collins M.D. LAB MICROBIOLOGY - B LOOD ORDERABLES [facility] [address] [place] [address], [place] [facility] [place] [address] [place] [address] * HCV Ab Scrn w/Reflex to HCV PCR, Serum (10/20/2020 5:01 PM CDT) HCV Ab Screen, S Negative Negative 10/21/2020 8:03 AM CDT [facility] Comment:Fuqwoi-rl-zuwjnm rat io is <1.00. Blood (Blood, Venous) 10/20/2020 5:01 PM CDT 10/21/2020 6:30 AM CDT Ryan Collins M.D. LAB MICROBIOLOGY - B LOOD ORDERABLES [facility] [address] [place] [address] [facility] Dept. of Laboratory Medicine and Pathology [address] [place] [address] from Last 3 Months or Most Recently Relevant to Health Maintenance Advance Directives For more information, please contact: [phone] * Full Code (Latest Code Status on File) Date Activated Date Inactivated Comments 05/18/2021 6:42 AM 05/18/2021 11:11 AM Question Answer Comments Full Code: Not Discussed Due to: Not medically appropriate Care Teams Manufacturing Test Technician Relationship Specialty Start Date End Date Jovita Salazar D.O., M.S. [address] [place] [phone] PCP - General Family Medicine 11/10/22
--- OUTSIDE RECORDS SUMMARY | 2023-09-16 11:23 | XMS_ITS | Referral Summary ---
Author Name Unknown Organization [facility] Address [address] [place] [address] Care Team Providers Care Electrocardiogram Technician Name Role Phone Jovita Salazar D.O., M.S. Primary Care Provide r Source Comments Patient records contain information from all sites at [facility]. For routine questions regarding patient records, call [phone] during business hours, M-F 8:00 AM - 5:00 PM Central Time. Record requests for emergency care only can be directed to [phone] at any time.[facility] Encounters Date Type Department Care Team Description 09/15/2023 Nurse Triage Department of Family [facility], [facility], in [place], [place] [address] [place] [phone] Marylu De La Cruz, R.N. 09/15/2023 Refill Department of Family [facility], [facility], in [place], [place] [address] [place] [phone] Jovita Salazar D.O., M.S. Med Refill 09/15/2023 Clinical Communication Department of Family Medicine, [facility], in [place], [place] [address] [place] [phone] Jovita Salazar D.O., M.S. Communication 09/01/2023 Clinical Communication Department of Rehabilitation Services in [place], [place] [address] [place] [phone] Mariluz Merritt P.T. 09/01/2023 Refill Department of Family Medicine, [facility], in [place], [place] [address] [place] [phone] Jovita Salazar D.O., M.S. Med Refill 08/31/2023 11:00 AM CDT Office Visit Department of Obstetrics and Gynecology in [place], [place] [address] [place] [phone] Chalino Mata M.D. Pelvic And Perineal Pain (Primary Dx) Discharge Disposition: Home or Self Care 08/30/2023 Clinical Communication Department of Obstetrics and Gynecology in [place], [place] [address] [place] [address] Yvonne Tam, RIdaliaN. Nurse Assessment (Post op) 08/14/2023 Orders Only Department of Obstetrics and Gynecology in [place], [place] [address] [place] [phone] Jenn Fam D.O. 08/11/2023 8:50 AM CDT Ancillary Procedure Department of General Surgery 08/11/2023 9:01 AM CDT - 08/11/2023 11:46 AM CDT Surgery [facility] in [place], [place] [address] [place] [phone] Chalino Mata M.D. HYSTEROSCOPY, CHROMOPERTUBATION, RANDOM PERITONEAL BIOPSIES 08/11/2023 9:15 AM CDT Anesthesia Event [facility] in [place], [place] [address] [place] [phone] Milton Chamberlain M.D. Panchamia, Jason K, DIdaliaOIdalia 08/11/2023 8:06 AM CDT - 08/11/2023 12:16 PM CDT Hospital Encounter Outpatient [facility] in [place], [place] [address] [place] [phone] Chalino Mata M.D. Pelvic And Perineal Pain; Abnormal Uterine And Vaginal Bleeding Unspecified Discharge Disposition: Home or Self Care 07/27/2023 10:15 AM BENEFITS CLERK Office Visit Department of Obstetrics and Gynecology in [place], [place] [address] [place] [phone] Chalino Mata M.D. Preventive Gynecological Exam (Primary Dx); Deep Dyspareunia; Polycystic Ovary Syndrome; Obesity Body Mass Index 30-39.9 Adult Discharge Disposition: Home or Self Care 07/24/2023 Clinical Communication Department of [facility] [place], [facility], in [place], [place] [address] [place] [phone] Jovita Salazar D.O., M.S. Rx Prior Authorization (Zepbound); Rx Denial (ZEPBOUND ) 07/12/2023 Clinical Communication Department of [facility] [place], [facility], in [place], [place] [address] [place] [phone] Jovita Salazar D.O., M.S. Rx Prior Authorization (Mounjaro) 07/11/2023 Orders Only Department of [facility] [place], [facility], in [place], [place] [address] [place] [phone] Jovita Salazar D.O., M.S. 06/29/2023 2:00 PM BENEFITS CLERK Office Visit Department of [facility] [place], [facility], in [place], [place] [address] [place] [phone] Jovita Salazar D.O., M.S. Body Mass Index 35.0 To 35.9 Adult (Primary Dx); Polycystic Ovary Syndrome Discharge Disposition: Home or Self Care 06/22/2023 Orders Only Department of Obstetrics and Gynecology in [place], [place] [address] [place] [phone] Chalino Mata M.D. Pelvic And Perineal Pain (Primary Dx); Abnormal Uterine And Vaginal Bleeding Unspecified from Last 3 Months Allergies Active Allergy Reactions Criticality Noted Date Comments Diphenhydramine Other (see comments) 10/20/2015 panic Feels like heavy in chest - both po and IV Grass Pollen-Red Top, Standard Cough 12/16/2014 Itchy watery eyes Pollen Extracts Other (see comments) 12/16/2014 Itchy watery eyes Medications Medication Sig Dispensed Refills Start Date End Date Status omega 1-dnf-vbb-fish oil (fish oil) 100-160-1,000 mg capsule Take [...] 7 (seven) days. 2 mL 2 09/06/2023 Active tirzepatide (Zepbound) 2.5 mg/0.5 mL injectionIndicat [...] Delivery Plan: scheduled c/s on 05/18 in [place]; covid testing on 05/16 Care Team/nursing team: MARGO Servin)GRISELDA) Delivery service: Partner name: Pertinent medical issues [...] for short term Follow up appointment with MACHINE FELLER 04/20 Nephrolithiasis 03/02/2023 Body Mass Index 35.0 [...] weight, PCOS mgmnt F/u with me after MACHINE FELLER appt Dysmenorrhea 12/28/2022 Overview: Reports abnormal menstrual cycles since her D&C in 2021. Gets bimonthly menses that is heavy with clots and lasts 4-5 days each. MACHINE FELLER consult pending CT scan 03/27/2023: New 3.9 [...] prn. Stone Kidney Personal History 12/27/2022 Overview: 2019 ureteroscopy with stone extraction. Stone analysis showed calcium oxalate and calcium phosphatase. Three stone episodes since. Followed with Urology on 09/06/2022 at [facility] d/t stone stent and lithotripsy. Urology follow up ordered here Asthma Mild Intermittent 01/15/2021 Overview: Bronchospasms with autoimmune disorder. Stable. Has not needed albuterol inhaler for 4-5 years. 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 Repeat TSH level every trimester, with initiation of levothyroxine therapy (if required) to achieve trimester-specific target ranges. 2. Detailed anatomic survey ultrasound 18-20 wks (completed), with repeat every 4 weeks to assess interval growth. 3. Anesthesiology consultation at 18-20 weeks (completed). 4. Initiate weekly surveillance at 32 weeks. 5. Presuming no antepartum maternal or complications, delivery (in [place]) if the achieves 39-40 weeks gestation. Plan return visits to [place] at 34-36 weeks, and delivery at 39-40 weeks in [place] for any acute angioedema episode with potential [...] Overview: The patient was admitted to the [facility] for a scheduled primary . Her [...] was uncomplicated. She received her care at [facility]. High Risk 05/06/2021 12/28/19 23 Care And [...] kidney and didelphys uterus. Previous MFM consultation ([place] 2019) reports negative antiphospholipid antibody syndrome evaluation and no evidence of a mullerian anomaly. Recommendations as detailed in angioedema section. Immunizations Name Administration Dates Next Due 4vHPV (discontinued) 06/12/2008,01/31/2008,11/21 Td Preservative Free (TENIVAC, DECAVAC) 10/08/19 07 Tdap 03/19/2021,12/20/2012 Social History Tobacco Use Types Packs/Day Years [...] money to buy more. Never true 12/28/19 23 Within the past 12 months, t he [...] your living situation today? I have a [facility] place to live 12/27/2022 Sex and [...] 167 cm (5' 5.75) 07/27/2023 10:00 AM BENEFITS CLERK Body Mass Index 33.56 07/27/2023 10:00 AM BENEFITS CLERK Plan of Treatment Upcoming Encounters Date Type Department Care Team (Latest Contact Info) Description 10/09/2023 9:45 AM CDT Comprehensive Visit Department of Endocrinology in [place], [place] [address] [place] [address] Fidencio Ojeda M.D. [address] [facility] [place] [phone] Discharge Disposition: Home or Self Care Medical Devices Implanted Type Area Cookie Breaker Device Identifier Shelf Expiration Date Model / Serial / Lot Hardware E.G. Pins/Screws/Tom s Hardware e.g. pins/screws/tom s Left: Knee Description:Screws Mirena 21 Mcg/24 Hours (8 Yrs) 52 Mg Intrauterine Device - [id number] - [id number] Implanted:Qty: 1 on 08/11/2023 by Chalino Mata M.D. at [facility] Intrauterine Device Gissel [id number] 05/21/2025 00526-74 07-20 [id number] / [id number] Explanted Type Area Cookie Breaker Device Identifier Shelf Expiration Date Model / [...] W/HPV CO-TEST DIAGNOSTIC Routine 07/27/2023 10:25 AM BENEFITS CLERK Preventive Gynecological Exam HPV WITH GENOTYPING, PCR, THINPREP Routine 07/27/2023 10:25 AM BENEFITS CLERK CHLAMYDIA/GONORRHOEA E AMPLIFIED RNA Routine 07/27/2023 10:25 AM BENEFITS CLERK Preventive Gynecological Exam VAGINITIS PANEL Routine 07/27/2023 10:25 AM BENEFITS CLERK Preventive Gynecological Exam BASIC METABOLIC PANEL, S/P [...] AM CDT 08/31/2023 11:13 AM CDT Chalino A Ostby M.D. LAB MICROBIOLOGY - G ENERAL ORDERABLES Performing Organization Address [facility] [[email or web address]] Co de Phone Number [facility] [address] [place] [address], [facility] AUST [facility] [address] [place] [address] * Surgical Pathology (08/11/2023 10:07 AM CDT) [...] SURG PATH ORDERA BLES Performing Organization Address [facility] [[email or web address]] Co de Phone Number [facility] [address] [place] [address], [facility] MKTO [address] [address] * LDA ANE ENDOTRACHEAL AIRWAY (08/11/2023 9:23 [...] ETT location: oral VL device: glide scope [place] scope blade size: 3 Tube size: 7 [...] ThinPrep w/HPV Co-Test Diagnostic (07/27/2023 10:25 AM BENEFITS CLERK) 07/31/2023 3:11 PM CDT HK Report electronically signed by TEMITOPE Jett(ASCP) I verify that I have examined all relevant slides/materials for the specimen(s) and rendered or confirmed the diagnosis. 07/31/2023 3:11 PM CDT HK Gross Description Received specimen in a ThinPrep [...] Prep Vial (Cervix/Endocerv ix) 07/27/2023 10:25 AM BENEFITS CLERK 07/28/2023 7:39 AM BENEFITS CLERK Chalino Mata M.D. LAB PAP PATHDX ORDER MALCOL[place] Performing Organization Address City/State/[facility] [[email or web address]] Co de Phone Number [facility] [address] [place] [address], [facility] [address] [place] [address] * HPV with Genotyping, PCR, ThinPrep (07/27/2023 10:25 AM BENEFITS CLERK) HPV with Genotyping, ThinPrep, PCR Negative Negative 07/28/2023 3:42 PM BENEFITS CLERK MKTO Comment: Negative for high risk HPV [...] correlated with patient's history, clinical presentation, and MACHINE FELLER cytology report. 07/27/2023 10:2 5 AM BENEFITS CLERK 07/28/2023 7:39 AM BENEFITS CLERK Chalino Mata M.D. LAB MICROBIOLOGY - G ENERAL ORDERABLES Performing Organization Address [facility]/ZIP Co de Phone Number [facility] [address] [place] [address], [facility] MKTO [address] [facility] [address] [place] [address] * Chlamydia / Gonorrhoeae Amplified RNA (07/27/2023 10:25 AM BENEFITS CLERK) Source Thin Prep Vial, Cervix/Endoc ervix 07/28/2023 3:05 PM BENEFITS CLERK MKTO Chlamydia trachomatis amplified RNA Negative Negative 07/28/2023 3:05 PM BENEFITS CLERK MKTO Source Thin Prep Vial, Cervix/Endoc ervix 07/28/2023 3:05 PM BENEFITS CLERK MKTO Neisseria gonorrhoeae amplified RNA Negative Negative 07/28/2023 3:05 PM BENEFITS CLERK MKTO Thin Prep Vial (Cervix/Endocerv ix) 07/27/2023 10:25 AM BENEFITS CLERK 07/28/2023 10:19 AM BENEFITS CLERK Chalino Mata M.D. LAB MICROBIOLOGY - G ENERAL ORDERABLES Performing Organization Address City/[facility]/ZIP Co de Phone Number [facility] [address] [place] [address], [facility] MKTO [address] [address] * Basic Metabolic Panel (01/25/2023 10:59 AM [...] Griffith M.D., M.S. LAB BLOOD AD D-ON [facility] [address] [place] [address], [facility] [address] [place] [address] * HIV-1/-2 Ag and Ab Scrn, Plasma [...] M.D. LAB MICROBIOLOGY - B LOOD ORDERABLES Performing Organization Address City/[facility]/ZIP Co de Phone Number [facility] [address] [place] [address], [place] [facility] [place] [address] [place] [address] * HCV Ab Scrn w/Reflex to HCV PCR, Serum (10/20/2020 5:01 PM CDT) HCV Ab Screen, S Negative Negative 10/21/2020 8:03 AM CDT [facility] Comment:Oivysm-mi-pimvmj rat io is <1.00. Blood (Blood, Venous) 10/20/2020 5:01 PM CDT 10/21/2020 6:30 AM CDT Ryan Collins M.D. LAB MICROBIOLOGY - B LOOD ORDERABLES Performing Organization Address City/[facility] [[email or web address]] Co de Phone Number [facility] [address] [place] [address] [facility] Dept. of Laboratory Medicine and Pathology [address] [place] [address] from Last 3 Months or Most Recently Relevant to Health Maintenance Advance Directives For more information, please contact: [phone] * Full Code (Latest Code Status on File) Date Activated Date Inactivated Comments 05/18/2021 6:42 AM 05/18/2021 11:11 AM Question Answer Comments Full Code: Not Discussed Due to: Not medically appropriate Care Teams Electrocardiogram Technician Relationship Specialty Start Date End Date Jovita Salazar D.O., M.S. [address] [place], [place] [address] PCP - General Family Medicine 11/10/22
--- OUTSIDE RECORDS SUMMARY | 2023-09-16 11:23 | XMS_ITS ---
Author Name Unknown Organization [facility] Address [address] [place] [address] Care Team Providers Care Steward/Stewardess Third Class Name Role Phone Unavailable Unavailable Unavailable Surgery Details Not on file Complications Check Surgery Details section. Procedure Estimated Blood Loss Check Surgery Details section. Procedure Findings Check Surgery Details section. Procedure Specimens Taken Check Surgery Details section.
--- OUTSIDE RECORDS SUMMARY | 2023-09-16 11:23 | XMS_ITS | Referral Summary ---
Author Name Unknown Organization [facility] Address [address] [place] [address] Care Team Providers Care Wash Tank Tender Name Role Phone No Ref-Primary, Physician Primary Care Provider Allergies Active Allergy Reactions Criticality Noted Date Comments Diphenhydramine Other (See Comments) 10/20/2015 panic Feels like heavy in chest - both po and IV Feels like heavy in chest - both po and IV panic Feels like heavy in chest - both po and IV Feels like heavy in chest - both po and IV Gramineae Pollens Other (See Comments) 12/17/19 15 Itchy watery eyes Oxycodone GI Disturbance,Headache Medium 10/25/2016 Medications Medication Sig Dispensed Refills Start Date End Date Status fluticasone (FLOVENT HFA) 220 mcg/actuation inhaler [FLUTICASONE (FLOVENT HFA) 220 MCG/ACTUATION INHALER] Inhale 2 puffs bedtime. 06/06/2014 Active MULTIVITAMIN ORAL [MULTIVITAMIN ORAL] Take 1 tablet by mouth daily. 06/06/2014 Active ergocalciferol (ERGOCALCIFEROL) 50,000 unit capsuleIndications:Vi tamin D deficiency [ERGOCALCIFEROL (ERGOCALCIFEROL) 50,000 UNIT CAPSULE] 1 tablet by mouth twice a week for 12 weeks. 24 capsule 0 06/16/2014 Active cloNIDine HCl (CATAPRES) 0.2 MG tabletIndications:Uns pecified essential hypertension [CLONIDINE HCL (CATAPRES) 0.2 MG TABLET] TAKE TWO TABLETS BY MOUTH AT BEDTIME 60 tablet 0 11/05/2014 Active albuterol (PROAIR HFA) 90 mcg/actuation inhalerIndications:Mi ld persistent asthma [ALBUTEROL (PROAIR HFA) 90 MCG/ACTUATION INHALER] Inhale 1-2 puffs every 4 (four) hours as needed for wheezing. Every 4 to 6 hours as needed. 1 Inhaler 5 11/05/2014 Active oxyCODONE-acetaminoph en (PERCOCET) 5-325 mg per tablet [OXYCODONE-ACETA MINOPHEN (PERCOCET) 5-325 MG PER TABLET] Take 1 tablet by mouth every 4 (four) hours as needed for pain. 15 tablet 0 02/06/2015 Active ondansetron (ZOFRAN ODT) 4 MG ODT tab Take 1 tablet (4 mg) by mouth every 8 hours as needed for nausea 10 tablet 04/20/2022 Active oxyCODONE (ROXICODONE) 5 MG tablet Take 1 tablet (5 mg) by mouth every 6 hours as needed for severe pain (7-10) 6 tablet 04/20/2022 Active Active Problems Problem Noted Date Diagnosed Date Myalgia 08/25/2014 Arthralgia 08/25/2014 Insomnia 06/17/2014 Allergic rhinitis 06/06/2014 Overview: Seasonal allergies. Anxiety 06/06/2014 Attention deficit hyperactivity disorder 015 Common migraine without aura 06/06/2014 Endometriosis 06/06/2014 Mild persistent asthma 06/06/2014 Ovarian cyst 06/06/2014 Pelvic pain 06/06/2014 Social History Tobacco Use Types Packs/Day Years Used Date Smoking Tobacco: Never Alcohol Use Standard Drinks/Week Comments Yes 0 (1 standard drink = 0.6 oz pure alcohol) Alcoholic Drinks/day: Occasional Adolescent Education Answer Date Record ed Getting School Help Needed Not on file 02/10 Sex and Gender Information Value Date Recorded Sex Assigned at Not on file Gender Identity Not on file Sexual Orientation Not on file Last Filed Vital Signs Vital Sign Reading Time Taken Comments Blood Pressure 120/86 04/20/2022 4:34 PM SENIOR CIVIL ENGINEER Pulse 95 04/20/2022 4:34 PM SENIOR CIVIL ENGINEER Temperature 36.1 ??C (96.9 ??F) 04/20/2022 12:[address] Respiratory Rate 18 04/20/2022 4:34 PM SENIOR CIVIL ENGINEER Oxygen Saturation 98% 04/20/2022 4:34 PM SENIOR CIVIL ENGINEER Inhaled Oxygen Concentration - - Weight 90.7 kg (200 lb) 04/20/2022 12:15 PM SENIOR CIVIL ENGINEER Height 162.6 cm (5' 4) 07/18/2014 11:32 PM SENIOR CIVIL ENGINEER Body Mass Index 34.33 07/18/2014 11:32 PM SENIOR CIVIL ENGINEER Plan of Treatment Not on file Procedures Procedure Name Priority Date/Time Associated Diagnosis Comments HEPATITIS C ANTIBODY Routine 08/25/2014 11:51 AM CDT from Last 3 Months or Most Recently Relevant to Health Maintenance Results * Hepatitis C antibody (08/25/2014 11:51 AM CDT) Hepatitis C Antibody Negative Negative 08/26/2014 9:10 AM CDT [facility] Blood specimen (specimen) Venipuncture / Unknown 08/25/2014 11:51 AM CDT 08/25/2014 6:12 PM CDT [facility] - BLOOD ORDERABL ES Performing Organization Address City/State/[facility] Co de Phone Number [facility] [address] [place] [id number], [facility] [address] [place] [address] from Last 3 Months or Most Recently Relevant to Health Maintenance Care Teams Wash Tank Tender Relationship Specialty Start Date End Date No Ref-Primary, Physician PCP - General 04/20/22
--- OUTSIDE RECORDS SUMMARY | 2023-09-16 11:23 | XMS_ITS | Clinical Summary ---
Author Name Unknown Organization [facility] Address [address] [place] [id number] Care Team Providers Care Power And Recovery Shift Engineer Name Role Phone No Ref-Primary, Physician Primary [...] 06/06/2014 Ovarian cyst 06/06/2014 Pelvic pain 06/06/2014 Family History Medical History Relation Comments Migraines Father Relation Status Comments Father Social History Tobacco Use Types Packs/Day Years [...] Comments Blood Pressure 120/86 04/20/2022 4:34 PM LACER AND TIER Pulse 95 04/20/2022 4:34 PM LACER AND TIER Temperature 36.1 ??C (96.9 ??F) 04/20/2022 12:[address] Respiratory Rate 18 04/20/2022 4:34 PM LACER AND TIER Oxygen Saturation 98% 04/20/2022 4:34 PM LACER AND TIER Inhaled Oxygen Concentration - - Weight 90.7 kg (200 lb) 04/20/2022 12:15 PM LACER AND TIER Height 162.6 cm (5' 4) 07/18/2014 11:32 PM LACER AND TIER Body Mass Index 34.33 07/18/2014 11:32 PM LACER AND TIER Plan of Treatment Health Maintenance Due Date Last Done Comments ADVANCE CARE PLANNING 1993 ANNUAL REVIEW OF HM ORDERS 1993 ASTHMA ACTION PLAN 1993 ASTHMA CONTROL TEST 1993 YEARLY PREVENTIVE VISIT 1993 Pneumococcal Vaccine: Pediatrics (0 to 5 Years) and At-Risk Patients (6 to 64 Years) (1 of 2 - PCV) 10/28/1999 HIV SCREENING 2008 HEPATITIS B IMMUNIZATION (1 of 3 - 19+ 3-dose series) 2012 PAP 2014 COVID-19 Vaccine (1 - 2022-24 season) 2023 INFLUENZA VACCINE (#1) 2023 PHQ-2 (once per calendar year) 2023 DTAP/TDAP/TD IMMUNIZATION (4 - Td or Tdap) 03/19/2031 03/19/2021, 12/20/2012, 10/07/2006, Additional history exists HPV IMMUNIZATION Completed 11/19/2008, 05/2008, 06/12/2008, Additional history exists HEPATITIS C SCREENING Completed 08/25/2014 IPV IMMUNIZATION Aged Out No longer e ligible based on patient's age to complete this topic MENINGITIS IMMUNIZATION Aged Out No l onger eligible based on patient's age to complete this topic RSV MONOCLONAL ANTIBODY Aged Out No l onger eligible based on patient's age to complete this topic Procedures Procedure Name Priority Date/Time Associated Diagnosis Comments HEPATITIS C ANTIBODY Routine 08/25/2014 11:51 AM CDT from Last 3 Months or Most Recently Relevant to Health Maintenance Results * Hepatitis C antibody (08/25/2014 11:51 AM CDT) Hepatitis C Antibody Negative Negative 08/26/2014 9:10 AM CDT [facility] Blood specimen (specimen) Venipuncture / Unknown 08/25/2014 11:51 AM CDT 08/25/2014 6:12 PM CDT [facility] - BLOOD ORDERABL ES [facility] [address] [place] [address], [place] [facility] [address] [place] [address] from Last 3 Months or Most Recently Relevant to Health Maintenance Care Teams Power And Recovery Shift Engineer Relationship Specialty Start Date End Date No Ref-Primary, Physician PCP - General 04/20/22
--- OUTSIDE RECORDS SUMMARY | 2023-09-16 11:24 | XMS_ITS | Encounter Summary ---
Author Name Unknown Organization [facility] Address [address] [place] [address] Care Team Providers Care Filleter Name Role Phone Jovita Salazar D.O. M.S. Primary Care Provide r Reason for Referral * Outpatient (Routine) - Closed Specialty Diagnoses / Procedures Referred By Contselin t Referred To Contact Obstetrics and Gynecology Chalino Mata M.D. [address] [place] [phone] [facility] Referral ID Status Reason Start Date Expiration Date Visits Re quested Visits Authorized [id number] Closed 06/22/2023 12/21/2024 1 1 TY BELT INSTALLER Encounter Details Date Type Department Care Team (Late st Contact Info) Description 06/22/2023 Orders Only Department of Obstetrics and Gynecology in [place], [place] [address] [place] [phone] Chalino Mata M.D. [address] [place] [phone] Pelvic And Perineal Pain (Primary Dx); Abnormal Uterine And Vaginal Bleeding Unspecified Social History Tobacco Use Types Packs/Day Years Used Date Smoking Tobacco: Never Passive Smoke Exposure: Never Smokeless Tobacco: Never Alcohol Use Standard Drinks/Week Comments Not Currently [...] PHQ-2 Answer Date Recorded PHQ-2 Score 0 03/02/2023 Exercise Vital Sign Answer Date Recorde d [...] your living situation today? I have a [facility] place to live 12/27/2022 Sex and Gender Information Value Date Recorded Sex Assigned at Female 12/27/2022 12:50 AM CDT Gender Identity Female 12/27/2022 12:50 AM CDT Sexual Orientation Straight 12/27/2022 12 :50 AM CDT documented as of this encounter Plan of Treatment Upcoming Encounters Date Type Department Care Team (Latest Contact Info) Description 10/09/2023 9:45 AM CDT Comprehensive Visit Department of Endocrinology in [place], [place] [address] [place] [phone] Fidencio Ojeda M.D. [address] [place] [facility] [place] [phone] Discharge Disposition: Home or Self Care Scheduled Referrals Name Type Priority Associated Diagnoses Order Schedule Obstetrics and Gynecology office visit (clinic) Outpatient Referral Routine Expected: 07/21/2023 (Approximate), Expires: 09/19/2024 documented as of this encounter Visit Diagnoses Diagnosis Pelvic And Perineal Pain- Primary Abnormal Uterine And Vaginal Bleeding Unspecified documented in this encounter Additional Health Concerns Assessment Noted Time PHQ-9 Depression Total Score: 8 03/19/20 21 1:30 PM CDT documented as of this encounter Care Teams Filleter Relationship Specialty Start Date End Date Jovita Salazar D.O., M.S. [address] [place] [phone] PCP - General Family Medicine 11/10/22 documented as of this encounter
--- OUTSIDE RECORDS SUMMARY | 2023-09-16 11:24 | XMS_ITS | Encounter Summary ---
Author Name Unknown Organization [facility] Address [address] [place] [address] Care Team Providers Care Dump Motor Operator Name Role Phone Jovita Salazar D.O. M.S. Primary Care Provide r Encounter Details Date Type Department Care Team (Late st Contact Info) Description 09/15/2023 Nurse Triage Department of Family Medicine, [facility], in [place], [place] [address] [place] [address] Marylu De La Cruz, R.NIdalia [address] [place] [address] Social History Tobacco Use Types Packs/Day Years [...] your living situation today? I have a [facility] place to live 12/27/2022 Sex and Gender Information Value Date Recorded Sex Assigned at Female 12/27/2022 12:50 AM CDT Gender Identity Female 12/27/2022 12:50 AM CDT Sexual Orientation Straight 12/27/2022 12 :50 AM CDT documented as of this encounter Miscellaneous Notes * Telephone Encounter - Marylu De La Cruz R.N. - 09/15/2023 3:02 PM CDT Chief Complaint / Reason for Call Patient is a 27 y.o. female calling returning a call to the nurse of her PCP with whom she has beenin communication today regarding a medication problem. Contacted KELSY Whaley, who will message the nurse to return the call. documented in this encounter Plan of Treatment Upcoming Encounters Date Type Department Care Team (Latest Contact Info) Description 10/09/2023 9:45 AM CDT Comprehensive Visit Department of Endocrinology in [place], [place] [address] [place] [phone] Fidencio Ojeda M.D. [address] [place] [phone] Discharge Disposition: Home or Self Care documented as of this encounter Visit Diagnoses Not on filedocumented in this encounter Additional Health Concerns Assessment Noted Time PHQ-9 Depression Total Score: 8 03/19/20 21 1:30 PM CDT documented as of this encounter Care Teams Dump Motor Operator Relationship Specialty Start Date End Date Jovita Salazar D.O., M.S. [address] [place] [phone] PCP - General Family Medicine 11/10/22 documented as of this encounter
--- OUTSIDE RECORDS SUMMARY | 2023-09-16 11:24 | XMS_ITS | Encounter Summary ---
Author Name Unknown Organization [facility] Address [address] [place] [address] Care Team Providers Care Freight Flow Sales Leader Name Role Phone Jovita Salazar D.O., M.S. Primary Care Provide r Reason for Referral * Outpatient (Routine) - Authorized Specialty Diagnoses / Procedures Referred By Myron lopez Referred To Contact Family Medicine Jovita Salazar D.O., M.S. [address] [place] [phone] [facility] Region Referral ID Status Reason Start Date Expiration Date V isits Requested Visits Authorized [id number] Authorized 06/29/2023 12/28/2024 1 1 ISTRY ASSOCIATE Reason for Visit * Reason Comments Follow-up Weight management * Outpatient (Routine) - Closed Specialty Diagnoses / Procedures Referred By Myron lopez Referred To Contact Family Medicine Diagnoses Polycystic Ovary Syndrome Jovita Salazar D.O., M.S. [address] [place] [phone] [facility] Region Referral ID Status Reason Start Date Expiration Date Visits Re quested Visits Authorized [id number] Closed 03/02/2023 03/01/2026 1 1 Encounter Details Date Type Department Care Team (Late st Contact Info) Description 06/29/2023 2:00 PM CHEMISTRY ASSOCIATE Office Visit Department of Family Medicine, [facility], in [place], [place] [address] [place] [phone] Jovita Salazar D.O., M.S. [address] [place] [phone] Body Mass Index 35.0 To 35.9 Adult (Primary Dx); Polycystic Ovary Syndrome Discharge Disposition: Home or Self Care Social History Tobacco Use Types Packs/Day Years [...] your living situation today? I have a [facility] place to live 12/27/2022 Sex and Gender Information Value Date Recorded Sex Assigned at Female 12/27/2022 12:50 AM CDT Gender Identity Female 12/27/2022 12:50 AM CDT Sexual Orientation Straight 12/27/2022 12 :50 AM CDT documented as of this encounter Last Filed Vital Signs Vital Sign Reading Time Taken Comments Blood Pressure 104/70 06/29/2023 2:13 PM CHEMISTRY ASSOCIATE Pulse 83 06/29/2023 2:13 PM CHEMISTRY ASSOCIATE Temperature 36.3 ??C (97.3 ??F) 06/29/2023 2:13 PM CS T Respiratory Rate - - Oxygen Saturation - - Inhaled Oxygen Concentration - - Weight 99.7 kg (219 lb 12.8 oz) 06/29/2023 2:13 PM CHEMISTRY ASSOCIATE Height 167 cm (5' 5.75) 06/29/2023 2:13 PM CHEMISTRY ASSOCIATE Body Mass Index 35.75 06/29/2023 2:13 PM CHEMISTRY ASSOCIATE documented in this encounter Progress Notes * Jovita Salazar D.O., M.S. - 06/29/2023 2:00 PM CST SUBJECTIVE Chief Complaint Follow-up Anna Lamb is a 27 y.o. female who presents for the above concerns. Patient would like to discuss weight management. She currently has a BMI of 35. She does not have afirst-degree family relative with history of thyroid cancer or personal history of thyroid cancer. She denies acute pancreatitis. She is interested in GLP 1 as well as lifestyle modification. Her medical condition include impaired fasting glucose, hereditary angioedema, PCOS, and migraine headache. The following screenings were completed: PHQ-2 Score: 0 REVIEW OF SYMPTOMS Constitutional: - Negative for fever. Skin: - Negative for skin rash. Eyes: - Negative for visual problems. ENT: - Negative for difficulty hearing. Cardiovascular: - Negative for chest pain, pressure or tightness. Gastrointestinal: Positive for abdominal (belly) pain or cramping. Genitourinary: Positive for abnormal vaginal bleeding. Hematologic: - Negative for bruises or bleeds easily. Neurological: - Negative for loss of consciousness. HISTORY REVIEW The following portions of the patient's history were reviewed: allergies, medical history, surgicalhistory, family history, current medications, social history and problem list. OBJECTIVE VITALS Vitals: 06/29/23 1413 BP: 104/70 BP Location: Left arm Patient Position: Sitting Cuff Size: Regular Pulse: 83 Temp: 36.3 ??C TempSrc: Temporal PainSc: 5 PainLoc: Abdomen PHYSICAL EXAM Constitutional General: She is not in acute distress. Appearance: She is overweight. She is not toxic-appearing. HENT Head: Normocephalic. Mouth/Throat: Mouth: Mucous membranes are moist. Eyes Conjunctiva/sclera: Conjunctivae normal. Pulmonary Effort: Pulmonary effort is normal. Neurological Mental Status: She is alert and oriented to person, place, and time. ASSESSMENT / PLAN Problem List Genitourinary Polycystic Ovary Syndrome Other Body Mass Index 35.0 To 35.9 Adult - Primary Current Assessment & Plan Tirzepatide: reduces fasting and postprandial blood glucose [...] heart rate or heart palpitations while resting. Relevant Medications tirzepatide (Mounjaro) 2.5 mg/0.5 mL pen injector injection ISTRY ASSOCIATE documented in this encounter Miscellaneous Notes * Assessment & Plan Note - Jovita Salazar D.O., M.S. - 06/29/2023 2:43 PM CHEMISTRY ASSOCIATE Associated Problem(s): Body Mass Index 35.0 To 35.9 Adult Tirzepatide: reduces fasting and postprandial blood glucose [...] heart rate or heart palpitations while resting. ISTRY ASSOCIATE documented in this encounter Plan of Treatment Upcoming Encounters Date Type Department Care Team (Latest Contact Info) Description 10/09/2023 9:45 AM CDT Comprehensive Visit Department of Endocrinology in [place], [place] [address] [place] [phone] Fidencio Ojeda M.D. [address] [place] [phone] Discharge Disposition: Home or Self Care Scheduled Referrals Name Type Priority Associated Diagnoses Orde r Schedule Family Medicine office visit (clinic) Outpatient Referral Routine Expected: 09/27/2023 (Approximate), Expires: 09/26/2024 documented as of this encounter Visit Diagnoses Diagnosis Body Mass Index 35.0 To 35.9 Adult- Primary Polycystic Ovary Syndrome documented in this encounter Additional Health Concerns Assessment Noted Time PHQ-9 Depression Total Score: 8 03/19/20 21 1:30 PM CDT documented as of this encounter Care Teams Freight Flow Sales Leader Relationship Specialty Start Date End Date Jovita Salazar D.O., M.S. [address] [place] [phone] PCP - General Family Medicine 11/10/22 documented as of this encounter
--- OUTSIDE RECORDS SUMMARY | 2023-09-16 11:24 | XMS_ITS | Encounter Summary ---
Author Name Unknown Organization [facility] Address [address] [place] [address] Care Team Providers Care Convict Guard Name Role Phone Jovita Salazar D.O., M.S. Primary Care Provide r Encounter Details Date Type Department Care Team (Late st Contact Info) Description 08/11/2023 8:50 AM CDT Ancillary Procedure Department of General Surgery Social History Tobacco Use Types Packs/Day Years [...] your living situation today? I have a [facility] place to live 12/27/2022 Sex and [...] CDT Comprehensive Visit Department of Endocrinology in [place], [place] [address] [place] [phone] Fidencio Ojeda M.D. [address] [facility] [place] [phone] Discharge Disposition: Home or Self Care documented as of this encounter Procedures Procedure Name Priority Date/Time Associated Diagnosis Comments GENERAL SURGERY IMAGE EXAM Routine 08/11/2023 8:50 AM CDT documented in this encounter Results * General Surgery Image Exam-General Surgery Image [...] NON RAD IMAGI NG PROCEDURES IIMS NA documented in this encounter Visit Diagnoses Not on filedocumented in this encounter Additional Health Concerns Assessment Noted Time PHQ-9 Depression Total Score: 8 03/19/20 21 1:30 PM CDT documented as of this encounter Care Teams Convict Guard Relationship Specialty Start Date End Date Jovita Salazar D.O., M.S. [address] [place] [phone] PCP - General Family Medicine 11/10/22 documented as of this encounter
--- OUTSIDE RECORDS SUMMARY | 2023-09-16 11:24 | XMS_ITS | Encounter Summary ---
Author Name Unknown Organization [facility] Address [address] [place] [address] Care Team Providers Care Aerial Crop Duster Name Role Phone Jovita Salazar D.O., M.S. Primary Care Provide r Reason for Visit * Reason Onset Date Comments Rx Prior Authorization 07/12/2023 Ramiro Encounter Details Date Type Department Care Team (Latest Contact Info) Description 07/12/2023 Clinical Communication Department of Family Medicine, [facility], in [place], [place] [address] [place] [phone] Jovita Salazar D.O., M.S. [address] [place] [phone] Rx Prior Authorization (Ramiro) Social History Tobacco Use Types Packs/Day Years [...] your living situation today? I have a [facility] place to live 12/27/2022 Sex and Gender Information Value Date Recorded Sex Assigned at Female 12/27/2022 12:50 AM CDT Gender Identity Female 12/27/2022 12:50 AM CDT Sexual Orientation Straight 12/27/2022 12 :50 AM CDT documented as of this encounter Miscellaneous Notes * Addendum Note - Shirin Shepard L.PDanny. - 07/12/2023 2:25 PM CSTAddended by: SHIRIN SHEPARD on: 07/12/2023 02:25 PM Modules accepted: Orders BARBER documented in this encounter Plan of Treatment Upcoming Encounters Date Type Department Care Team (Latest Contact Info) Description 10/09/2023 9:45 AM CDT Comprehensive Visit Department of Endocrinology in [place], [place] [address] [place] [phone] Fidencio Ojeda M.D. [address] [place] [facility] [place] [phone] Discharge Disposition: Home or Self Care documented as of this encounter Visit Diagnoses Diagnosis Body Mass Index 35.0 To 35.9 Adult- Primary documented in this encounter Additional Health Concerns Assessment Noted Time PHQ-9 Depression Total Score: 8 03/19/20 21 1:30 PM CDT documented as of this encounter Care Teams Aerial Crop Duster Relationship Specialty Start Date End Date Jovita Salazar D.O., M.S. [address] [place] [phone] PCP - General Family Medicine 11/10/22 documented as of this encounter
--- OUTSIDE RECORDS SUMMARY | 2023-09-16 11:24 | XMS_ITS | Encounter Summary ---
Author Name Unknown Organization [facility] Address [address] [place] [address] Care Team Providers Care Preforms Laminator Name Role Phone Jovita Salazar D.O., M.S. Primary Care Provide r Reason for Referral * Outpatient (Routine) - Authorized Specialty Diagnoses / Procedures Referred By Myron t Referred To Contact Family Medicine Jovita Salazar D.O., M.S. [address] [phone] [facility] Region Referral ID Status Reason Start Date Expiration Date V isits Requested Visits Authorized [id number] Authorized 08/03/2023 02/01/2025 1 1 Reason for Visit * Reason Onset Date Comments Rx Prior Authorization 07/24/2023 Zepbound Rx Denial 07/24/2023 ZEPBOUND Encounter Details Date Type Department Care Team (Latest Contact Info) Description 07/24/2023 Clinical Communication Department of Family Medicine, [facility], in [place], [place] [address] [place] [phone] Jovita Salazar D.O., M.S. [address] [place] [phone] Rx Prior Authorization (Zepbound); Rx Denial (ZEPBOUND ) Social History Tobacco Use Types Packs/Day Years [...] your living situation today? I have a [facility] place to live 12/27/2022 Sex and [...] CDT Comprehensive Visit Department of Endocrinology in [place], [place] [address] [place] [phone] Fidencio Ojeda M.D. [address] [facility] [place] [address] Discharge Disposition: Home or Self Care Scheduled Referrals Name Type Priority Associated Diagnoses Orde r Schedule Family Medicine office visit (clinic) Outpatient Referral Routine Expected: 09/03/2023 (Approximate), Expires: 11/02/2024 documented as of this encounter Visit Diagnoses Not on filedocumented in this encounter Additional Health Concerns Assessment Noted Time PHQ-9 Depression Total Score: 8 03/19/20 21 1:30 PM CDT documented as of this encounter Care Teams Preforms Laminator Relationship Specialty Start Date End Date Jovita Salazar D.O., M.S. [address] [place] [phone] PCP - General Family Medicine 11/10/22 documented as of this encounter
--- OUTSIDE RECORDS SUMMARY | 2023-09-16 11:24 | XMS_ITS | Encounter Summary ---
Author Name Unknown Organization [facility] Address [address] [place] [address] Care Team Providers Care Manager Exchange Name Role Phone Jovita Salazar D.O., M.S. Primary Care Provide r Reason for Visit * Reason Comments Med Refill Encounter Details Date Type Department Care Team (Late st Contact Info) Description 09/01/2023 Refill Department of Family Medicine, [facility], in [place], [place] [address] [place] [phone] Jovita Salazar D.O., M.S. [address] [place] [phone] Med Refill Social History Tobacco Use Types Packs/Day Years [...] your [facility] situation today[facility] 12/27/2022 Sex and Gender Information Value Date Recorded Sex Assigned at Female 12/27/2022 12:50 AM CDT Gender Identity Female 12/27/2022 12:50 AM CDT Sexual Orientation Straight 12/27/2022 12 :50 AM CDT documented as of this encounter Plan of Treatment Upcoming Encounters Date Type Department Care Team (Latest Contact Info) Description 10/09/2023 9:45 AM CDT Comprehensive Visit Department of Endocrinology in [place], [place] [address] [place] [phone] Fidencio Ojeda M.D. [address] [facility] [place] [address] Discharge Disposition: Home or Self Care documented as of this encounter Visit Diagnoses Diagnosis Body Mass Index 35.0 To 35.9 Adult documented in this encounter Additional Health Concerns Assessment Noted Time PHQ-9 Depression Total Score: 8 03/19/20 21 1:30 PM CDT documented as of this encounter Care Teams Manager Exchange Relationship Specialty Start Date End Date Jovita Salazar D.O., M.S. [address] [place] [phone] PCP - General Family Medicine 11/10/22 documented as of this encounter
--- OUTSIDE RECORDS SUMMARY | 2023-09-16 11:24 | XMS_ITS | Encounter Summary ---
Author Name Unknown Organization [facility] Address [address] [place] [address] Care Team Providers Care Mixer Tender Name Role Phone Jovita Salazar D.O., M.S. Primary Care Provide r Reason for Visit * Auth/Cert (Routine) Specialty Diagnoses / Procedures Referred By Myron lopez Referred To Contact Diagnoses Pelvic And Perineal Pain Abnormal Uterine And Vaginal Bleeding Unspecified Pelvic And Perineal Pain [R10.2] Abnormal Uterine And Vaginal Bleeding Unspecified [N93.9] Procedures MT HYSTERSCPY W BX ENDOMETR/POLYP MT INSERT OF INTRAUTERINE DEVICE MT LAP ABD/PERITNM/OMENT DX BRUSH DILATATION AND CURETTAGE HYSTEROSCOPY PLACEMENT MIRENA INTRAUTERINE DEVICE DIAGNOSTIC LAPAROSCOPY Referral ID Status Reason Start Date Expiration Date Visits Re quested Visits Authorized [id number] 1 1 Encounter Details Date Type Department Care Team (Late st Contact Info) Description 08/11/2023 9:01 AM CDT - 08/11/2023 11:46 AM CDT Surgery [facility] in [place], [place] [address] [phone] Chalino Mata M.D. [address] [phone] HYSTEROSCOPY, CHROMOPERTUBATION, RANDOM PERITONEAL BIOPSIES Social History Tobacco Use Types Packs/Day Years [...] your living situation today? I have a [facility] place to live 12/27/2022 Sex and Gender Information Value Date Recorded Sex Assigned at Female 12/27/2022 12:50 AM CDT Gender Identity Female 12/27/2022 12:50 AM CDT Sexual Orientation Straight 12/27/2022 12 :50 AM CDT documented as of this encounter Last Filed Vital Signs Vital Sign Reading Time Taken Comments Blood Pressure 113/57 08/11/2023 11:45 AM CDT Pulse 89 08/11/2023 11:45 AM CDT Temperature 37 ??C (98.6 ??F) 08/11/2023 11:15 AM CDT Respiratory Rate 12 08/11/2023 11:45 AM CDT Oxygen Saturation 94% 08/11/2023 11:45 AM CDT Inhaled Oxygen Concentration - - Weight - - Height - - Body Mass Index - - documented in this encounter Medications at Time of Discharge Medication Sig Dispensed Refills Start Date End Date acetaminophen (TYLENOL) 500 mg tablet Take 2 tablets (1,000 mg total) by mouth every 6 (six) hours. 05/20/2021 cyclobenzaprine (FLEXERIL) 10 mg tabletIndications:Mas s Adnexal Take 1 tablet (10 mg total) by mouth 3 (three) times a day as needed for muscle spasms. 30 tablet 04/11/2023 EPINEPHrine 0.3 mg/0.3 mL injection syringe Inject 0.3 mg intramuscularly. 05/01/2017 icatibant (FIRAZYR) 30 mg/3 mL injection Inject subcutaneous once daily if needed. 06/01/2016 levonorgestreL (MIRENA) 21 mcg/24 hours (8 yrs) 52 mg IUD 1 each by intrauterine route continuously. yqmteatdpkkn-kjzl-YQ (CENTRUM COMPLETE) 18-400 mg-mcg per tablet Take 1 tablet by mouth daily. omega 9-gfb-rqv-fish oil (fish oil) 100-160-1,000 mg capsule Take 1 capsule by mouth daily. 12/22/2015 phentermine 15 mg capsule Take 1 capsule (15 mg total) by mouth every morning. 30 capsule 08/03/2023 SUMAtriptan (IMITREX) 6 mg/0.5 mL injection Inject 6 mg under the skin as needed. 05/02/2017 doxycycline monohydrate (MONODOX) 100 mg capsule Take 1 capsule (100 mg total) by mouth 2 (two) times a day before breakfast and dinner for 14 days. 28 capsule 08/13/2023 08/27/2023 oxyCODONE (ROXICODONE) 5 mg immediate release tabletIndications:Acu te Pain Take 1 tablet (5 mg total) by mouth every 4 (four) hours as needed for pain Indication: Acute Pain. 5 tablet 08/11/2023 08/14/2023 oxyCODONE (ROXICODONE) 5 mg immediate release tabletIndications:Acu te Pain Exception,Acute Pain Take 1 tablet (5 mg total) by mouth every 4 (four) hours as needed Indication: Acute Pain, Acute Pain Exception. 5 tablet 08/11/2023 08/14/2023 tirzepatide (ZEPBOUND) 2.5 mg/0.5 mL injectionIndications: Body Mass Index 35.0 To 35.9 Adult Inject 2.5 mg under the skin every 7 (seven) days. 2 mL 2 07/12/2023 09/01/2023 documented as of this encounter OR Notes * Op Note - Chalino Mata M.D. - 08/11/2023 9:45 AM CDT Pre-op Diagnosis Pelvic And Perineal Pain,Abnormal Uterine And Vaginal Bleeding Unspecified Post-op Diagnosis Pelvic And Perineal Pain,Abnormal Uterine And Vaginal Bleeding Unspecified Findings As expected. This case was substantially more difficult than usual because of significant effort and difficulty mobilizing and identifying anatomical structures due to altered surgical field secondary to obesity,inflammation and previous surgery. Complications None Operative Note Narrative Patient consented for surgery due to dyspareunia and significant pelvic pain during menses. Subjectively, this was worse after a curettage procedure for a miscarriage and so hysteroscopy was desired. After sterile prep and drape, patient was in lithotomy and received a general anesthetic. We began with hysteroscopy and dilated to 12 Romansh. Simple hysteroscope was inserted demonstrating proliferative endometrium, normal tubal ostia, and normal uterine contour. No evidence of symptoms or Asherman's syndrome. A Lilly catheter was placed for later chromopertubation. There was no fluid deficit. After change of gloves, we then proceeded with laparoscopy with infraumbilical entry via direct visualization with a 5 mm port. Insufflation had initial low pressure. Insufflation on high flow demonstrated significant pelvic adhesions between the colon and sidewall, omentum and umbilicus, uterus and bladder, and Artis Master window in the left cul-de-sac. Chromopertubation was performed with tubes that were bilaterally normal until the distal fimbriated ends where there was possibly mild clubbing. After 20 mL of methylene blue, there was no spillage of contrast from the tubes. The ovaries appeared polycystic but otherwise normal and follicular. A random biopsy was taken from the right pelvic brim that was 2 x 1 cm in size and bleeding was controlled using monopolar energy down laparoscopic scissors. A directed biopsy was taken from the Artis Master window inferior to the left uterosacral and also sent for pathology. Lilly catheter was removed while neurosurgical nurse practitioner closed laparoscopic ports. Mirena IUD was placed. My impression is that the patient does in fact have endometriosis. Because we have not tried any antibiotics, I did not want to remove her fallopian tubes at this time for what appears to be minimal abnormalities. Estimated blood loss 25 mL. Remainder of local anesthesia was infiltrated in incisions. Chalino Mata M.D. documented in this encounter Plan of Treatment Upcoming Encounters Date Type Department Care Team (Latest Contact Info) Description 10/09/2023 9:45 AM CDT Comprehensive Visit Department of Endocrinology in [place], [place] [address] [place] [phone] Fidencio Ojeda M.D. [address] [place] [facility] [place] [address] Discharge Disposition: Home or Self Care documented as of this encounter Procedures Procedure Name Priority Date/Time Associated Diagnosis Comments ADULT OXYGEN THERAPY Routine 08/11/2023 10:42 AM CDT SURGICAL PATHOLOGY Routine 08/11/2023 10 :07 AM CDT Pelvic And Perineal Pain Abnormal Uterine And Vaginal Bleeding Unspecified DIAGNOSTIC LAPAROSCOPY 08/11/2023 8:55 AM CDT Pelvic And Perineal Pain Abnormal Uterine And Vaginal Bleeding Unspecified PLACEMENT MIRENA INTRAUTERINE DEVICE 08/11/2023 8:55 AM CDT Pelvic And Perineal Pain Abnormal Uterine And Vaginal Bleeding Unspecified HYSTEROSCOPY 08/11/2023 8:55 AM CDT Pelvic And Perineal Pain Abnormal Uterine And Vaginal Bleeding Unspecified documented in this encounter Results * Surgical Pathology (08/11/2023 10:07 AM CDT) [...] Mata M.D. LAB SURG PATH ORDERA BLES [facility] [address] [place] [address], [facility] [address] [address] documented in this encounter Visit Diagnoses Diagnosis Pelvic And Perineal Pain Abnormal Uterine And Vaginal Bleeding Unspecified Pelvic And Perineal Pain Abnormal Uterine And Vaginal Bleeding Unspecified documented in this encounter Admitting Diagnoses Diagnosis Abnormal Uterine And Vaginal Bleeding Unspecified Pelvic And Perineal Pain documented in this encounter Administered Medications Inactive Administered Medications - up to 3 most recent administrations Medication Order MAR Action Action Date Dose Rate Site acetaminophen tablet 1,000 mg (TYLENOL) 1,000 mg, oral, Once, On Mon08/11/23 at 0845, For 1 dose, Pre-Op Given 08/11/2023 8:31 AM CDT 1,000 mg fentaNYL injection 25 mcg (SUBLIMAZE) 25 mcg, intravenous, Every 2 min PRN, For pain 4 or greater (maximum 100 mcg). If max dose of Fentanyl is reached and if pain is greater than 4, discontinue Fentanyl: give Hydromorphone, Starting on Mon08/11/23 at 1042, PACU (only) Given 08/11/2023 10:58 AM CDT 25 mcg Given 08/11/2023 10:56 AM CDT 25 mcg Given 08/11/2023 10:53 AM CDT 25 mcg HYDROmorphone injection 0.2 mg (DILAUDID) 0.2 mg, intravenous, Every 5 min PRN, moderate pain or score 4-6 of 10, severe pain or score 7-10 of 10, Starting on Mon08/11/23 at 1042, PACU (only), Up to maximum total dose of 2 mg Given 08/11/2023 11:08 AM CDT 0.2 mg Given 08/11/2023 11:03 AM CDT 0.2 mg Lactated Ringer's 20 mL/hr, intravenous, Continuous, Starting on Mon08/11/23 at 0845, Pre-Op New Bag 08/11/2023 11:04 AM CDT 20 mL/hr 20 mL/ hr New Bag 08/11/2023 8:31 AM CDT 20 mL/hr 20 mL/hr levonorgestreL 21 mcg/24 hours (8 yrs) 52 mg IUD (MIRENA) As needed, Starting on Mon08/11/23 at 1018, Intra-Op Given 08/11/2023 10:18 AM CDT 1 each Uterus lidocaine 10 mg/mL (1 %) injection 1 mL (XYLOCAINE) 1 mL, infiltration, Once, On Mon08/11/23 at 0845, For 1 dose, Pre-Op, May admin up to 1 mL at the site of IV site if not allergic to lidocaine Given 08/11/2023 10:03 AM CDT 10 mL Abdominal Tissue lidocaine-EPINEPHrine 1 %-1:100,000 injection (XYLOCAINE W/EPI) As needed, Starting on Mon08/11/23 at 0954, Intra-Op Given 08/11/2023 9:54 AM CDT 5 mL Abdominal Tissue methylene blue 0.5 % (5 mg/mL) injection As needed, Starting on Mon08/11/23 at 1004, Intra-Op Given 08/11/2023 10:04 AM CDT 10 mL Abdominal Tissue oxyCODONE IR tablet 5 mg (ROXICODONE) 5 mg, oral, Every 4 hours PRN, severe pain or score 7-10 of 10, Starting on Mon08/11/23 at 1028 Given 08/11/2023 11:26 AM CDT 5 mg documented in this encounter Active and Recently Administered Medications Times are shown in CDT. Scheduled Medication Order 08/09/2023 08/10/2023 08/11/2023 acetaminophen tablet 1,000 mg (TYLENOL) (COMPLETED) 1,000 mg, oral, Once, On Mon08/11/23 at 0845, For 1 dose, Pre-Op 0831 (Given - Provid er: Donna Jernigan R.N.) lidocaine 10 mg/mL (1 %) injection 1 mL (XYLOCAINE) (COMPLETED) 1 mL, infiltration, Once, On Mon08/11/23 at 0845, For 1 dose, Pre-Op, May admin up to 1 mL at the site of IV site if not allergic to lidocaine 0845 (Due)1003 (Give n - Provider: Chalino Mata M.D.) Continuous Medication Order 08/09/2023 08/10/2023 08/11/2023 Lactated Ringer's 20 mL/hr, intravenous, Continuous, Starting on Mon08/11/23 at 0845, Pre-Op 0831 (New Bag - Prov ider: Donna Jernigan R.N.)1104 (New Bag - Provider: Donna Jernigan R.N.) PRN Medication Order 08/09/2023 08/10/2023 08/11/2023 fentaNYL injection 25 mcg (SUBLIMAZE) 25 mcg, intravenous, Every 2 min PRN, For pain 4 or greater (maximum 100 mcg). If max dose of Fentanyl is reached and if pain is greater than 4, discontinue Fentanyl: give Hydromorphone, Starting on Mon08/11/23 at 1042, PACU (only) 1051 (Given - Provid er: Donna Jernigan R.N.)1053 (Given - Provider: Donna Jernigan R.N.)1056 (Given - Provider: Donna Jernigan R.N.)1058 (Given - Provider: Donna Jernigan R.N.) HYDROmorphone injection 0.2 mg (DILAUDID) 0.2 mg, intravenous, Every 5 min PRN, moderate pain or score 4-6 of 10, severe pain or score 7-10 of 10, Starting on Mon08/11/23 at 1042, PACU (only), Up to maximum total dose of 2 mg 1103 (Given - Provid er: Donna Jernigan R.N.)1108 (Given - Provider: Donna Jernigan RIdaliaN.) ketorolac injection 15 mg (TORADOL) 15 mg, intravenous, Once as needed, moderate pain or score 4-6 of 10, Starting on Mon08/11/23 at 1042, For 1 dose, PACU (only), Adult IV push rate: Over 15 seconds. Peds IV push rate: Over 1 minute. Doses > 15 mg IV/IM are discouraged due to lack of additional analgesic benefit. levonorgestreL 21 mcg/24 hours (8 yrs) 52 mg IUD (MIRENA) (CANCELED) As needed, Starting on Mon08/11/23 at 1018, Intra-Op 1018 (Given - Provid er: Chalino Mata M.D.) lidocaine-EPINEPHrine 1 %-1:100,000 injection (XYLOCAINE W/EPI) (CANCELED) As needed, Starting on Mon08/11/23 at 0954, Intra-Op 0954 (Given - Provid er: Chalino Mata M.D.) meperidine (PF) injection 12.5 mg (DEMEROL) 12.5 mg, intravenous, Every 2 min PRN, shivering, May repeat once, Starting on Mon08/11/23 at 1042, For 2 doses, PACU (only), Restriction Criteria (Pharmacy will review and approve if criteria met): Prevention or treatment of post-anesthesia shivering methylene blue 0.5 % (5 mg/mL) injection (CANCELED) As needed, Starting on Mon08/11/23 at 1004, Intra-Op 1004 (Given - Provid er: Chalino Mata M.D. - Comment: infiltration) ondansetron (PF) injection 4 mg (ZOFRAN) 4 mg, intravenous, Every 6 hours PRN, nausea, vomiting, (If patient has not received in the previous 6 hours), Starting on Mon08/11/23 at 1042, PACU (only), Administer first. If nausea and vomiting persists, proceed with haloperidol. (order of antiemetic administration - ondansetron then haloperidol then granisetron) oxyCODONE IR tablet 5 mg (ROXICODONE) 5 mg, oral, Every 4 hours PRN, severe pain or score 7-10 of 10, Starting on Mon08/11/23 at 1028 1126 (Given - Provid er: Donna Jernigan R.N.) documented in this encounter Additional Health Concerns Assessment Noted Time PHQ-9 Depression Total Score: 8 03/19/20 21 1:30 PM CDT documented as of this encounter Care Teams Mixer Tender Relationship Specialty Start Date End Date Jovita Salazar D.O., M.S. [address] [place] [phone] PCP - General Family Medicine 11/10/22 documented as of this encounter
--- OUTSIDE RECORDS SUMMARY | 2023-09-16 11:24 | XMS_ITS | Encounter Summary ---
Author Name Unknown Organization [facility] Address [address] [place] [address] Care Team Providers Care Retread Technician Name Role Phone Jovita Salazar D.O. M.S. Primary Care Provide r Reason for Referral * Physical Therapy (Routine) - Authorized Specialty Diagnoses / Procedures Referred By Juan Joséac t Referred To Contact Diagnoses Pelvic And Perineal Pain Procedures PT Evaluate and treat Chalino Mata M.D. [address] [phone] [facility] Region Referral ID Status Reason Start Date Expiration Date V isits Requested Visits Authorized [id number] Authorized 08/31/2023 08/30/2024 1 1 Reason for Visit * Reason Comments Post-op Visit Post op, dos 08/11/23 * Outpatient (Routine) - Closed Specialty Diagnoses / Procedures Referred By Myron t Referred To Contact Obstetrics and Gynecology Chalino Mata M.D. [address] [place] [address] [facility] Region Referral ID Status Reason Start Date Expiration Date Visits Re quested Visits Authorized [id number] Closed 08/30/2023 02/28/2025 1 1 Encounter Details Date Type Department Care Team (Late st Contact Info) Description 08/31/2023 11:00 AM CDT Office Visit Department of Obstetrics and Gynecology in [place], [place] [address] [phone] Chalino Mata M.D. [address] [place] [address] Pelvic And Perineal Pain (Primary Dx) Discharge Disposition: Home or Self Care Social [...] your living situation today? 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 - 08/31/2023 11:00 AM CDT Patient is seen in follow up after diagnostic hysteroscopy showing normal uterine contour and luteal phase and laparoscopy with 2 biopsies ultimately negative for endometriosis and otherwise notable for mild clubbing of the fallopian tubes which were without patency by chromopertubation returns for postoperative exam. She states that her menstrual cycles started roughly about the time of IUD placement and has been more prolonged and irregular than usual. I explained this is likely fitting with general expectationsafter IUD placement. On exam today, she has dark blood but no active bleeding in the IUD does not appear to be low in positioning; strings are present at the os. Given we are still without a diagnosis for her perineal and pelvic pain, we talked about pelvic floor physical therapy and a trial of 14 days of doxycycline for chronic endometritis as a presumptive diagnosis. My hope is that doxycycline may be beneficial for the fallopian tubes as well and that wecould re perform a tubal patency test prior to concluding that in vitro fertilization would be required. #1 Pelvic and Perineal Pain #2 Post-Operative State #3 Clubbing of Fallopian Tubes Bilaterally #4 Abnormal Uterine Bleeding, Iatrogenic (Newly Placed Intrauterine Device) #5 Change in Vaginal Discharge, History of Bacterial Vaginosis Vaginitis panel sent today. If positive, plan for BV treatment after doxycycline completed. documented in this encounter Plan of Treatment Upcoming Encounters Date Type Department Care Team (Latest Contact Info) Description 10/09/2023 9:45 AM CDT Comprehensive Visit Department of Endocrinology in [place], [place] [address] [place] [phone] Fidencio Ojeda M.D. [address] [place] [address] Discharge Disposition: Home or Self Care documented as of this encounter Procedures Procedure Name Priority Date/Time Associated Diagnosis Comments VAGINITIS PANEL Routine 08/31/2023 11:09 AM CDT Pelvic And Perineal Pain documented in this encounter Results * Vaginitis Panel (08/31/2023 11:09 AM CDT) Rosa Maria species, DNA Negative Negative 08/31/2023 12:37 PM CDT [facility] Gardnerella vaginalis, DNA Negative Negative 08/31/2023 12:37 PM CDT [facility] Trichomonas vaginalis, DNA Negative Negative 08/31/2023 12:37 PM CDT [facility] Swab (Vagina) 08/31/2023 11: 09 AM CDT 08/31/2023 11:13 AM CDT Chalino Mata M.D. LAB MICROBIOLOGY - G ENERAL ORDERABLES [facility] [address] [place] [address], [facility] [place] [facility] [address] [place] [address] documented in this encounter Visit Diagnoses Diagnosis Pelvic And Perineal Pain- Primary documented in this encounter Additional Health Concerns Assessment Noted Time PHQ-9 Depression Total Score: 8 03/19/20 21 1:30 PM CDT documented as of this encounter Care Teams Retread Technician Relationship Specialty Start Date End Date Jovita Salazar D.O., M.S. [address] [place] [phone] PCP - General Family Medicine 11/10/22 documented as of this encounter
--- OUTSIDE RECORDS SUMMARY | 2023-09-16 11:24 | XMS_ITS | Encounter Summary ---
Author Name Unknown Organization [facility] Address [address] [place] [address] Care Team Providers Care Gis Analyst Developer Name Role Phone Jovita Salazar D.O. M.S. Primary Care Provide r Reason for Visit * Reason Comments Follow-up Discuss surgical int ervention for endometriosis and AUB * Outpatient (Routine) - Closed Specialty Diagnoses / Procedures Referred By Myron lopez Referred To Contact Obstetrics and Gynecology Chalino Mata M.D. [address] [place] [phone] [facility] Region Referral ID Status Reason Start Date Expiration Date Visits Re quested Visits Authorized [id number] Closed 06/22/2023 12/21/2024 1 1 Encounter Details Date Type Department Care Team (Latest Contact Info) Description 07/27/2023 10:15 AM HEAVY DUTY PRESS OPERATOR Office Visit Department of Obstetrics and Gynecology in [place], [place] [address] [place] [phone] Chalino Mata M.D. [address] [place] [address] Preventive Gynecological Exam (Primary Dx); Deep Dyspareunia; Polycystic Ovary Syndrome; Obesity Body Mass Index 30-39.9 Adult Discharge Disposition: Home or Self Care Social [...] your living situation today? I have a [place] place to live 12/27/2022 Sex and Gender Information Value Date Recorded Sex Assigned at Female 12/27/2022 12:50 AM CDT Gender Identity Female 12/27/2022 12:50 AM CDT Sexual Orientation Straight 12/27/2022 12 :50 AM CDT documented as of this encounter Last Filed Vital Signs Vital Sign Reading Time Taken Comments Blood Pressure 91/65 07/27/2023 10:00 AM HEAVY DUTY PRESS OPERATOR Pulse 71 07/27/2023 10:00 AM HEAVY DUTY PRESS OPERATOR Temperature - - Respiratory Rate - - Oxygen Saturation - - Inhaled Oxygen Concentration - - Weight 97.8 kg (215 lb 9.8 oz) 07/27/2023 10:00 AM HEAVY DUTY PRESS OPERATOR Height 167 cm (5' 5.75) 07/27/2023 10:00 AM HEAVY DUTY PRESS OPERATOR Body Mass Index 35.07 07/27/2023 10:00 AM HEAVY DUTY PRESS OPERATOR documented in this encounter H&P Notes * Chalino Mata M.D. - 07/27/2023 10:15 AM CST SUBJECTIVE Preoperative evaluation and management of pelvic pain REASON FOR VISIT Planned procedure August 10 HISTORY OF PRESENT ILLNESS Ms. Lamb is a 27 y.o. who presents for preoperative evaluation, final recommendations regarding dyspareunia, and well-woman care. I have reviewed and updated the following: allergies, current medications, prior to admission medications, family history, medical history, social history, surgical history, and problem list Past Medical History: Diagnosis Date Abruption Placental Personal History With (HCC) Allergy Unspecified Initial Angioedema Acquired Personal History Anxiety Generalized Disorder Asthma Mild Intermittent (HCC) 01/15/2021 Asthma NOS Attention Deficit With Hyperactivity Disorder Care And Lactating 10/21/2020 Status post RN obstetric education Normal OB exam, routine labs completed. Mental health history includes anxiety, depression, and ADHD, no current medications. We discussed her mental health in detail, she feels that she is stable now but it does have concerns for potentially worsening mood state during , I am recommending that she establish care with therapy for this. Patient Section Delivery ([facility]) 05/17/2021 The patient was admitted to the [facility] for a scheduled primary . Her pregnancywas complicated by obesity, hypothyroidism, history of a previous demise and history of hereditary angioedema. She did not labor. She had a primary delivery, delivering a liveborn female with weight of 3.49 kg . Gestational age: 37w4d. occurred: 05/18/2021 , 8:36 A Intrauterine Personal History 10/21/2020 History of 3rd trimester IUFD, patient believes that was caused by an abruption though reports growth restriction prior to demise, delivery was induced. Family history notable for sister with 1kidney and didelphys uterus. Previous [facility] consultation (Nikhil 2018) reports negative antiphospholipid antibody syndrome evaluation and no evidence of a mullerian anomaly. 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 Past Surgical History: Procedure Laterality Date SECTION - PRIMARY N/A 05/18/2021 Procedure: SECTION - PRIMARY; Surgeon: Milton Feng M.D.; Location: [facility] Carpenter&ISAIAH CHOLECYSTECTOMY ENDOMETRIAL ABLATION EXTRACTION TOOTH OVARIAN CYST REMOVAL right PANCREAS SURGERY stent placed in pancreatic duct and liver TONSILLECTOMY Family History Problem Relation Age of Onset Diabetes Mother Depression Mother Depression Father Diabetes Sister No Known Problems Brother Multiple sclerosis Maternal Grandmother No Known Problems Maternal Grandfather Cancer of intestine Paternal Grandmother Thyroid disease Paternal Grandmother Social History Socioeconomic History Marital status: Single Tobacco Use Smoking status: Never Passive exposure: Never Smokeless tobacco: Never Vaping Use Vaping Use: never used Substance and Sexual Activity Alcohol use: Not Currently Drug use: Never Sexual activity: Defer Social Determinants of Health Food Insecurity: No Food Insecurity (12/27/2022) Hunger Vital Sign Worried About Running Out of Food in the Last Year: Never true Ran Out of Food in the Last Year: Never true Transportation Needs: No Transportation Needs (12/27/2022) PRAPARE - Transportation Lack of Transportation (Medical): No Lack of Transportation (Non-Medical): No Physical Activity: Insufficiently Active (12/27/2022) Exercise Vital Sign Days of Exercise per Week: 2 days Minutes of Exercise per Session: 30 min Intimate Partner Violence: Not At Risk (12/27/2022) Humiliation, Afraid, Rape, and Kick questionnaire Fear of Current or Ex-Partner: No Emotionally Abused: No Physically Abused: No Sexually Abused: No Housing Stability: Low Risk (12/27/2022) Housing Stability Housing: Living Situation: I have a steady place to live Allergies Allergen Reactions Diphenhydramine Other (see comments) panic Feels like heavy in chest - both po and IV Grass Pollen-Red Top, Standard Cough Itchy watery eyes Pollen Extracts Other (see comments) Itchy watery eyes @CURRENTMEDS@ Active Home Medications Medication Sig Taking acetaminophen (TYLENOL) 500 mg tablet Take 2 tablets (1,000 mg total) by mouth every 6 (six) hours.Yes EPINEPHrine 0.3 mg/0.3 mL injection syringe Inject 0.3 mg intramuscularly. Yes icatibant (FIRAZYR) 30 mg/3 mL injection Inject subcutaneous once daily if needed. Yes fyazsdvlppay-xian-DM (CENTRUM COMPLETE) 18-400 mg-mcg per tablet Take 1 tablet by mouth daily. Yes omega 9-kjh-lvg-fish oil (fish oil) 100-160-1,000 mg capsule Take 1 capsule by mouth daily. Yes ondansetron (Zofran) 4 mg tablet Take 1 tablet (4 mg total) by mouth every 8 (eight) hours as needed for nausea or vomiting. Yes SUMAtriptan (IMITREX) 6 mg/0.5 mL injection Inject 6 mg under the skin as needed. Yes cyclobenzaprine (FLEXERIL) 10 mg tablet Take 1 tablet (10 mg total) by mouth 3 (three) times a day as needed for muscle spasms. Patient not taking: Reported on 05/30/2023 ketorolac (TORADOL) 10 mg tablet Take 1 tablet (10 mg total) by mouth every 6 (six) hours as neededfor pain. Patient not taking: Reported on 05/30/2023 ondansetron ODT (ZOFRAN-ODT) 4 mg disintegrating tablet Dissolve 1 tablet in the mouth every 8 (eight) hours as needed. tirzepatide (ZEPBOUND) 2.5 mg/0.5 mL injection Inject 2.5 mg under the skin every 7 (seven) days. Patient not taking: Reported on 07/27/2023 REVIEW OF SYSTEMS A comprehensive review of systems was negative. OBJECTIVE VITAL SIGNS Blood Pressure: (91)/(65) 91/65 Height: [167 cm] 167 cm Weight: [97.8 kg] 97.8 kg BSA (Calculated - sq m): [2.13 sq meters] 2.13 sq meters BMI (Calculated): [35.1 kg/m??] 35.1 kg/m?? Pulse Rate: [71] 71 PHYSICAL EXAM Constitutional General: She is not in acute distress. Appearance: Normal appearance. She is well-developed and well-groomed. She is obese. Labia: There is no skin thickness or lesion on the right labia. There is no skin thickness or lesion on the left labia. Inguinal area: no right inguinal hernia or no right inguinal adenopathy adenopathy.no left inguinaland no left inguinal adenopathy. Perineum: The perineum is normal. Condyloma on perineum: except for acanthosis nigricans. Vagina: The vagina is normal. The vagina exhibits no lesion and no bleeding. Adnexa: Right adnexa shows no mass and no tenderness. Left adnexa shows no mass and no tenderness. Cervix: The cervix is normal. Cervix does not exhibit lesion. ThinPrep specimen collected and specimen for infection testing collected from the cervix. Prolapse: well-supported anterior, apical, posterior, vaginal mcleod. Uterus: The uterus is normal. The uterus is smooth. The uterus is in the anteverted and midaxial position. Abdominal Hernia: There is no hernia in the left inguinal area or right inguinal area. Lymphadenopathy Lower Body: No right inguinal adenopathy. No left inguinal adenopathy. Neurological Mental Status: She is alert. Psychiatric Behavior: Behavior is cooperative. DIAGNOSTICS I have reviewed the labs, diagnostics, and echo from last 6 months. ASSESSMENT / PLAN #1 Preventive Gynecological Exam #2 Deep Dyspareunia #3 Polycystic Ovary Syndrome #4 Obesity Body Mass Index 30-39.9 Adult Patient has decided that she would like to proceed with hysteroscopy, laparoscopy, and Mirena IUD placement. Goal will be to take at minimum random biopsies to test for endometriosis. At the time of this procedure we will start with laparoscopy, perform chromopertubation, then close the about abdominal component of the procedure prior to hysteroscopy. I discussed that her transvaginal ultrasound was normal and I am expecting to find normal pelvic anatomy, however that endometriosis is still possible. She very much would like to have biopsy to try to find an answer for her dyspareunia. Pap smear, STD screening, and vaginitis panel performed today. Plan for surgery on August 10 presently scheduled as the 1st case. Chalino Mata M.D. Y DUTY PRESS OPERATOR documented in this encounter Plan of Treatment Upcoming Encounters Date Type Department Care Team (Latest Contact Info) Description 10/09/2023 9:45 AM CDT Comprehensive Visit Department of Endocrinology in [place], [place] [address] [place] [address] Fidencio Ojeda M.D. [address] [place] [phone] Discharge Disposition: Home or Self Care documented as of this encounter Procedures Procedure Name Priority Date/Time Associated Diagnosis Comments VAGINITIS PANEL Routine 07/27/2023 10:25 AM HEAVY DUTY PRESS OPERATOR Preventive Gynecological Exam THINPREP W/HPV CO-TEST DIAGNOSTIC Routine 07/27/2023 10:25 AM HEAVY DUTY PRESS OPERATOR Preventive Gynecological Exam HPV WITH GENOTYPING, PCR, THINPREP Routine 07/27/2023 10:25 AM HEAVY DUTY PRESS OPERATOR CHLAMYDIA/GONORRHOE AE AMPLIFIED RNA Routine 07/27/2023 10:25 AM HEAVY DUTY PRESS OPERATOR Preventive Gynecological Exam documented in this encounter Results * HPV with Genotyping, PCR, ThinPrep (07/27/2023 10:25 AM HEAVY DUTY PRESS OPERATOR) HPV with Genotyping, ThinPrep, PCR Negative Negative 07/28/2023 3:42 PM HEAVY DUTY PRESS OPERATOR MKTO Comment: Negative for high risk HPV [...] correlated with patient's history, clinical presentation, and TURN OPERATOR cytology report. 07/27/2023 10:2 5 AM HEAVY DUTY PRESS OPERATOR 07/28/2023 7:39 AM HEAVY DUTY PRESS OPERATOR Chalino Mata M.D. LAB MICROBIOLOGY - G ENERAL ORDERABLES [facility] [address] [place] [address], [facility] MKTO [address] [place] [address] * ThinPrep w/HPV Co-Test Diagnostic (07/27/2023 10:25 AM HEAVY DUTY PRESS OPERATOR) 07/31/2023 3:11 PM CDT HKCY Report electronically signed by TEMITOPE Jett(ASCP) I [...] Prep Vial (Cervix/Endocerv ix) 07/27/2023 10:25 AM HEAVY DUTY PRESS OPERATOR 07/28/2023 7:39 AM HEAVY DUTY PRESS OPERATOR Chalino Mata M.D. LAB PAP PATHDX ORDER MALCOLM Performing Organization Address City/[facility]/ZIP Co de Phone Number [facility] [address] [place] [address], [facility] HKCY [address] [facility] [address] [place] [address] * Chlamydia / Gonorrhoeae Amplified RNA (07/27/2023 10:25 AM HEAVY DUTY PRESS OPERATOR) Source Thin Prep Vial, Cervix/Endoc ervix 07/28/2023 3:05 PM HEAVY DUTY PRESS OPERATOR MKTO Chlamydia trachomatis amplified RNA Negative Negative 07/28/2023 3:05 PM HEAVY DUTY PRESS OPERATOR MKTO Source Thin Prep Vial, Cervix/Endoc ervix 07/28/2023 3:05 PM HEAVY DUTY PRESS OPERATOR MKTO Neisseria gonorrhoeae amplified RNA Negative Negative 07/28/2023 3:05 PM HEAVY DUTY PRESS OPERATOR MKTO Thin Prep Vial (Cervix/Endocerv ix) 07/27/2023 10:25 AM HEAVY DUTY PRESS OPERATOR 07/28/2023 10:19 AM HEAVY DUTY PRESS OPERATOR Chalino Mata M.D. LAB MICROBIOLOGY - G ENERAL ORDERABLES Performing Organization Address City/[facility]/ZIP Co de Phone Number [facility] [address] [place] [address], [facility] MKTO [address] [facility] [address] [place] [address] * Vaginitis Panel (07/27/2023 10:25 AM HEAVY DUTY PRESS OPERATOR) Rosa Maria species, DNA Negative Negative 07/27/2023 2:30 PM HEAVY DUTY PRESS OPERATOR AUST Gardnerella vaginalis, DNA Negative Negative 07/27/2023 2:30 PM HEAVY DUTY PRESS OPERATOR AUST Trichomonas vaginalis, DNA Negative Negative 07/27/2023 2:30 PM HEAVY DUTY PRESS OPERATOR AUST Swab (Vagina) 07/27/2023 10: 25 AM HEAVY DUTY PRESS OPERATOR 07/27/2023 1:31 PM HEAVY DUTY PRESS OPERATOR Chalino Mata M.D. LAB MICROBIOLOGY - G ENERAL ORDERABLES [facility] [address] [place] [address], [place] AUST [facility] - [facility] [address] [place] [address] documented in this encounter Visit Diagnoses Diagnosis Preventive Gynecological Exam- Primary Deep Dyspareunia Polycystic Ovary Syndrome Obesity Body Mass Index 30-39.9 Adult documented in this encounter Additional Health Concerns Assessment Noted Time PHQ-9 Depression Total Score: 8 03/19/20 21 1:30 PM CDT documented as of this encounter Care Teams Gis Analyst Developer Relationship Specialty Start Date End Date Jovita Salazar D.O., M.S. [address] [place] [phone] PCP - General Family Medicine 11/10/22 documented as of this encounter
--- OUTSIDE RECORDS SUMMARY | 2023-09-16 11:24 | XMS_ITS | Encounter Summary ---
Author Name Unknown Organization [facility] Address [address] [place] [address] Care Team Providers Care Electric Lift Truck Driver Name Role Phone Jovita Salazar D.O., M.S. Primary Care Provide r Encounter Details Date Type Department Care Team (Late st Contact Info) Description 07/11/2023 Orders Only Department of Family Medicine, [facility], in [place], [place] [address] [place] [phone] Jovita Salazar D.O., M.S. [address] [place] [phone] Social History Tobacco Use Types Packs/Day Years [...] Date Recorded Dental: Regular Dentist No 12/28/19 23 Employment Answer Date Recorded Employment status Employed and actively working without restrictions 12/27/2022 Housing Stability Answer Date Recorded What is your living situation today? I have a [facility] place to live 12/27/2022 Sex and [...] CDT Comprehensive Visit Department of Endocrinology in [place], [place] [address] [place] [phone] Fidencio Ojeda M.D. [address] [place] [facility] [place] [phone] Discharge Disposition: Home or Self Care documented as of this encounter Visit Diagnoses Not on filedocumented in this encounter Additional Health Concerns Assessment Noted Time PHQ-9 Depression Total Score: 8 03/19/20 21 1:30 PM CDT documented as of this encounter Care Teams Electric Lift Truck Driver Relationship Specialty Start Date End Date Jovita Salazar D.O., M.S. [address] [place] [phone] PCP - General Family Medicine 11/10/22 documented as of this encounter
--- OUTSIDE RECORDS SUMMARY | 2023-09-16 11:24 | XMS_ITS | Encounter Summary ---
Author Name Unknown Organization [facility] Address [address] [place] [address] Care Team Providers Care Hydro Technician Name Role Phone Jovita Salazar D.O., M.S. Primary Care Provide r Reason for Visit * Auth/Cert (Routine) Specialty Diagnoses / Procedures Referred By Myron lopez Referred To Contact Diagnoses Pelvic And Perineal Pain Abnormal Uterine And Vaginal Bleeding Unspecified Pelvic And Perineal Pain [R10.2] Abnormal Uterine And Vaginal Bleeding Unspecified [N93.9] Procedures NC HYSTERSCPY W BX ENDOMETR/POLYP NC INSERT OF INTRAUTERINE DEVICE NC LAP ABD/PERITNM/OMENT DX BRUSH DILATATION AND CURETTAGE HYSTEROSCOPY PLACEMENT MIRENA INTRAUTERINE DEVICE DIAGNOSTIC LAPAROSCOPY Referral ID Status Reason Start Date Expiration Date Visits Re quested Visits Authorized [id number] 1 1 Encounter Details Date Type Department Care Team (Latest Contact Info) Description 08/11/2023 8:06 AM CDT - 08/11/2023 12:16 PM CDT Hospital Encounter Outpatient Procedure Center in [place], [place] [address] [place] [phone] Chalino Mata M.D. [address] [place] [phone] Pelvic And Perineal Pain; Abnormal Uterine And Vaginal Bleeding Unspecified Discharge Disposition: Home or Self Care Social [...] your living situation today? I have a [facility] place to live 12/27/2022 Sex and Gender Information Value Date Recorded Sex Assigned at Female 12/27/2022 12:50 AM CDT Gender Identity Female 12/27/2022 12:50 AM CDT Sexual Orientation Straight 12/27/2022 12 :50 AM CDT documented as of this encounter Last Filed Vital Signs Vital Sign Reading Time Taken Comments Blood Pressure 110/61 08/11/2023 12:00 PM CDT Pulse 88 08/11/2023 12:00 PM CDT Temperature 37 ??C (98.6 ??F) 08/11/2023 [...] IUD 1 each by intrauterine route continuously. owiqpxaxmwoq-ztky-HJ (CENTRUM COMPLETE) 18-400 mg-mcg per tablet Take 1 tablet by mouth daily. omega 7-frg-ydm-fish oil (fish oil) 100-160-1,000 mg capsule Take [...] began with hysteroscopy and dilated to 12 [place]. Simple hysteroscope was inserted demonstrating proliferative endometrium, [...] for pathology. Lilly catheter was removed while hand frame surgical elastic knitter closed laparoscopic ports. Mirena IUD was placed. [...] CDT Comprehensive Visit Department of Endocrinology in [place], [place] [address] [place] [phone] Fidencio Ojeda M.D. [address] [place] [facility] [place] [address] Discharge Disposition: Home or Self Care [...] Mata M.D. LAB SURG PATH ORDERA BLES [facility] [address] [place] [address], [facility] MKTO [address] [address] documented in this encounter Visit Diagnoses Diagnosis [...] 8:31 AM CDT 20 mL/hr 20 mL/hr oxyCODONE IR tablet 5 mg (ROXICODONE) 5 [...] R.N.)1104 (New Bag - Provider: Donna Jernigan RIdaliaN.) PRN Medication Order 08/09/2023 08/10/2023 08/11/2023 fentaNYL injection 25 mcg (SUBLIMAZE) 25 mcg, intravenous, Every 2 min PRN, For pain 4 or greater (maximum 100 mcg). If max dose of Fentanyl is reached and if pain is greater than 4, discontinue Fentanyl: give Hydromorphone, Starting on Mon08/11/23 at 1042, PACU (only) 1051 (Given - Provid er: Donna Jernigan, R.N.)1053 (Given - Provider: Donna Jernigan R.N.)1056 [...] Jernigan R.N.)1108 (Given - Provider: Donna Jernigan R.N.) ketorolac injection 15 mg (TORADOL) 15 mg, [...] 1126 (Given - Provid er: Donna Jernigan R.NIdalia) documented in this encounter Additional Health Concerns Assessment Noted Time PHQ-9 Depression Total Score: 8 03/19/20 21 1:30 PM CDT documented as of this encounter Care Teams Hydro Technician Relationship Specialty Start Date End Date Jovita Salazar D.O., M.S. [address] [place] [phone] PCP - General Family Medicine 11/10/22 documented as of this encounter
--- OUTSIDE RECORDS SUMMARY | 2023-09-16 11:24 | XMS_ITS | Encounter Summary ---
Author Name Unknown Organization [facility] Address [address] [place] [address] Care Team Providers Care Stemhole Borer Name Role Phone Jovita Salazar D.O., M.S. Primary Care Provide r Encounter Details Date Type Department Care Team (Late st Contact Info) Description 09/01/2023 Clinical Communication Department of Rehabilitation Services in [place], [place] [address] [place] [address] Mariluz Merritt PIdaliaTIdalia [address] [place] [address] Social History Tobacco Use Types Packs/Day Years [...] your living situation today? I have a [facility] place to live 12/27/2022 Sex and [...] CDT Comprehensive Visit Department of Endocrinology in [place], [place] [address] [place] [phone] Fidencio Ojeda M.D. [address] [facility] [place] [phone] Discharge Disposition: Home or Self Care documented as of this encounter Visit Diagnoses Not on filedocumented in this encounter Additional Health Concerns Assessment Noted Time PHQ-9 Depression Total Score: 8 03/19/20 21 1:30 PM CDT documented as of this encounter Care Teams Stemhole Borer Relationship Specialty Start Date End Date Jovita Salazar D.O., M.S. [address] [place] [phone] PCP - General Family Medicine 11/10/22 documented as of this encounter
--- OUTSIDE RECORDS SUMMARY | 2023-09-16 11:24 | XMS_ITS | Encounter Summary ---
Author Name Unknown Organization [facility] Address [address] [place] [address] Care Team Providers Care Content Development Specialist Name Role Phone Jovita Salazar D.O., M.S. Primary Care Provide r Reason for Visit * Reason Comments Med Refill Encounter Details Date Type Department Care Team (Late st Contact Info) Description 09/15/2023 Refill Department of Family Medicine, [facility], in [place], [place] [address] [place] [phone] Jovita Salazar D.O., M.S. [address] [place] [address] Med Refill Social History Tobacco Use [...] your [facility] today? [facility] 12/27/2022 Sex and [...] CDT Comprehensive Visit Department of Endocrinology in [place], [place] [address] [place] [phone] Fidencio Ojeda M.D. [address] [facility] [place] [address] Discharge Disposition: Home or Self Care documented as of this encounter Visit Diagnoses Diagnosis Body Mass Index 35.0 To 35.9 Adult documented in this encounter Additional Health Concerns Assessment Noted Time PHQ-9 Depression Total Score: 8 03/19/20 21 1:30 PM CDT documented as of this encounter Care Teams Content Development Specialist Relationship Specialty Start Date End Date Jovita Salazar D.O., M.S. [address] [place] [phone] PCP - General Family Medicine 11/10/22 documented as of this encounter
--- OUTSIDE RECORDS SUMMARY | 2023-09-16 11:24 | XMS_ITS | Encounter Summary ---
Author Name Unknown Organization [facility] Address [address] [place] [address] Care Team Providers Care Director Life Sciences Name Role Phone Jovita Salazar D.O., M.S. Primary Care Provide r Encounter Details Date Type Department Care Team (Late st Contact Info) Description 08/14/2023 Orders Only Department of Obstetrics and Gynecology in [place], [place] [address] [place] [phone] Jenn Fam D.O. [address] [place] [phone] Social History Tobacco Use Types Packs/Day Years [...] living situation today? I have a [facility] place to live 12/27/2022 Sex [...] CDT Comprehensive Visit Department of Endocrinology in [place], [place] [address] [place] [phone] Fidencio Ojeda M.D. [address] [place] [phone] Discharge Disposition: Home or Self Care documented as of this encounter Visit Diagnoses Not on filedocumented in this encounter Additional Health Concerns Assessment Noted Time PHQ-9 Depression Total Score: 8 03/19/20 21 1:30 PM CDT documented as of this encounter Care Teams Director Life Sciences Relationship Specialty Start Date End Date Jovita Salazar D.O., M.S. [address] [place] [phone] PCP - General Family Medicine 11/10/22 documented as of this encounter
--- OUTSIDE RECORDS SUMMARY | 2023-09-16 11:24 | XMS_ITS | Encounter Summary ---
Author Name Unknown Organization [facility] Address [address] [place] [address] Care Team Providers Care Supervisor Garage Name Role Phone Jovita Salazar D.O., M.S. Primary Care Provide r Reason for Visit * Auth/Cert (Routine) Specialty Diagnoses / Procedures Referred By Myron t Referred To Contact Diagnoses Pelvic And Perineal Pain Abnormal Uterine And Vaginal Bleeding Unspecified Pelvic And Perineal Pain [R10.2] Abnormal Uterine And Vaginal Bleeding Unspecified [N93.9] Procedures DE HYSTERSCPY W BX ENDOMETR/POLYP DE INSERT OF INTRAUTERINE DEVICE DE LAP ABD/PERITNM/OMENT DX BRUSH DILATATION AND CURETTAGE HYSTEROSCOPY PLACEMENT MIRENA INTRAUTERINE DEVICE DIAGNOSTIC LAPAROSCOPY Referral ID Status Reason Start Date Expiration Date Visits Re quested Visits Authorized [id number] 1 1 Encounter Details Date Type Department Care Team (Late st Contact Info) Description 08/11/2023 9:15 AM CDT Anesthesia Event Outpatient Procedure Center in [place], [place] [address] [place] [phone] Milton Chamberlain M.D. [address] [place] [phone] Driss Parrish D.O. [address] [place] [address] Anesthesia Record Procedure Summary Procedure Name Responsible Anesthesiologist Anesthesia Start Time Anesthesia Stop Time HYSTEROSCOPY, CHROMOPERTUBATION, RANDOM PERITONEAL BIOPSIES (Abdomen) Milton Chamberlain M.D. 08/11/23 0915 08/11/23 1042 Events Date Time Event Comment 08/11/2023 0855 0915 An Start Machine/Equipme nt Checked Infection Precautions Followed Procedure/Site Verified NPO Status Verified Supine Standard ASA Monitors Applied 0921 An Induction 0923 An Intubation 0923 Turnover to Proceduralist 0945 Proc Start 1026 Proc Fin 1035 Turnover to ANE Staff 1036 Airway Removal Criteria Met 1036 Extubation/Airway Removed 1038 an stop data 1042 An End I completed my handoff to the receiving staff during which we 1. Identified the patient 2. Identified the responsible provider 3. Reviewed the pertinent medical history 4. Discussed the surgical course 5. Reviewed intra-op anesthesia management and issues during anesthesia 6. Set expectations for post-procedure period 7. Allowed opportunity for questions and acknowledgement of understanding. Meds Name Total midazolam 1 mg/mL injection 2 mg fentanyl injection 50 mcg/mL 100 mcg lidocaine 2% (mg) injection 80 mg succinylcholine 20 mg/mL injection 120 m g rocuronium 10 mg/mL injection 40 mg ondansetron 4 mg/2 mL injection 4 mg sugammadex 100 mg/mL injection 200 mg propofol 10 mg/mL injection 150 mg dexAMETHasone (DECADRON) injection 4 mg/ mL 8 mg ketorolac (TORADOL) injection 30 mg/mL 1 5 mg Lactated Ringers Free Drip 900 mL * Agents No agents on file. * Blood No blood administrations on file. Lines, Drains, and Airways Type Details Placement Removal Wound 08/11/23; 0957; N; Umbilicus; Laparoscopic site 08/11/23 0957 by Micah Acevedo, R.N. Wound 08/11/23; 1000; N; Umbilicus; Anterior, Right; laparoscopic site 08/11/23 1000 by Micah Acevedo, R.N. Wound 05/18/21; 0903; N; Incision; Abdomen; Lower, Medial; Abdominal Dressing; 08/11/23; 0957 05/18/21 0903 by Adry Lindsey M.SIdaliaNIdalia, R.N. 08/11/23 0957 by Micah Acevedo, R.N. Peripheral IV Placement Date: 07/21 07/15; Placement Time: 827; Catheter Size: 20 G; Orientation: Right; Location: Hand; Site Prep: Chlorhexidine (Preferred); Technique: Anatomical landmarks; Inserted by: MIKHAIL [email or web address]; Insertion Attempts: 1; Removal Date: 08/11/23; Removal Time: 1202; Removal Reason: Patient discharged 08/11/23 0828 by Donna Jernigan RIdaliaNIdalia 08/11/23 1202 by Donna Jernigan R.N. ETT Placement Date: 07/21 07/15; Placement Time: 09 (created via procedure documentation); Mask Ventilation: Easy mask; Technique: Video laryngoscopy; Type: Standard ETT; Single Lumen Tube Size: 7 mm; Cuffed: Yes; Location: Oral; Grade View: Grade 2A; Insertion Attempts: 1; Placement Verification: Bilateral breath sounds, Positive ETCO2, Symmetrical chest wall movement; Removal Date: 08/11/23; Removal Time: 1036 08/11/23 0923 by Erika Mendosa APRN, CRNA DNAJam 08/11/23 1036 by Erika Mendosa APRN, CRNA, DNAJam documented in this encounter Social History Tobacco Use Types Packs/Day Years [...] your living situation today? I have a [facility] place to live 12/27/2022 Sex and Gender Information Value Date Recorded Sex Assigned at Female 12/27/2022 12:50 AM CDT Gender Identity Female 12/27/2022 12:50 AM CDT Sexual Orientation Straight 12/27/2022 12 :50 AM CDT documented as of this encounter OR Notes * Anesthesia Postprocedure Evaluation - Milton Chamberlain M.D. - 08/11/2023 11:39 AM CDT Patient: Anna Lamb Procedure Summary Date: 08/11/23 Room / Location: [place] [address] / [facility] [place] Anesthesia Start: 914 Anesthesia Stop: 1042 Procedures: HYSTEROSCOPY, CHROMOPERTUBATION, RANDOM PERITONEAL BIOPSIES (Abdomen) PLACEMENT MIRENA INTRAUTERINE DEVICE (Uterus) DIAGNOSTIC LAPAROSCOPY Diagnosis: Pelvic And Perineal Pain Abnormal Uterine And Vaginal Bleeding Unspecified (Pelvic And Perineal Pain [R10.2]) (Abnormal Uterine And Vaginal Bleeding Unspecified [N93.9]) Providers: Chalino Mata M.D. Responsible Provider: Milton Chamberlain M.D. Anesthesia Type: general ASA Status: 2 Anesthesia Type: general Last vitals Vitals Value Taken Time BP 115/69 08/11/23 1110 Temp 36.6 ??C 08/11/23 1040 Pulse 96 08/11/23 1113 Resp 14 08/11/23 1113 SpO2 96 % 08/11/23 1113 Vitals shown include unfiled device data. Please reference Vitals flowsheet for most recent vital signs. Anesthesia Post Evaluation Patient Disposition: dismissal Cardiovascular status: hemodynamics (HR & BP) acceptable Respiratory status: patent airway with spontaneous effort Temperature: normothermic Oxygen requirements: room air Level of consciousness: awake Pain score: pain adequately controlled and/or at baseline Post Op nausea/vomiting: none Hydration status: euvolemic * Anesthesia Procedure Notes - Erika Mendosa APRN, CRNA, DNAP - 08/11/2023 9:27 AM CDTAssociated Order(s): Airway Airway Date/Time: 08/11/2023 9:23 AM Performed by: Erika Mendosa APRN, CRNA, DNAP Authorized by: Milton Chamberlain M.D. Patient location during procedure: OR / Procedure Area PROCEDURE DETAILS: Mask difficulty assessment: easy mask Final airway type: video laryngoscope Laryngeal Manipulation: no Final best view of glottic structures - Cormack/Lehane Score: grade 2A ETT location: oral VL device: glide scope [place] scope blade size: 3 Tube size: 7 ETT distance at teeth/gum: 22 Oral tube type: standard ETT Cuffed: yes Leak Test Performed: no Number of attempt to successful placement: 1 Airway confirmation: bilateral breath sounds, positive ETCO2 and bilateral chest rise Other previous techniques attempted: none PRE PROCEDURE DETAILS: Pre evaluation for airway management: procedure Urgency: elective Preop assessment of probable difficulty: questionable / suspicious difficult airway Preoxygenation: bag valve mask SEDATION / ANESTHESIA Anesthesia method: anesthesia POST PROCEDURE DETAILS: Procedure outcome: successful Notable Events: no complications * Anesthesia Preprocedure Evaluation - Milton Chamberlain M.D. - 08/11/2023 8:54 AM CDT Preprocedure Anesthesia & H&P Assessment Procedure Summary Date/Time: 08/11/23 09 Procedures: DILATATION AND CURETTAGE HYSTEROSCOPY PLACEMENT MIRENA INTRAUTERINE DEVICE DIAGNOSTIC LAPAROSCOPY Diagnosis: Pelvic And Perineal Pain [R10.2] Abnormal Uterine And Vaginal Bleeding Unspecified [N93.9] Pre-op diagnosis: Pelvic And Perineal Pain [R10.2] Abnormal Uterine And Vaginal Bleeding Unspecified [N93.9] Location: [address] Providers: Chalino Mata M.D. Pertinent components of the patient's history including current problem list, medical history, surgical history, family history, social history, medications and allergies were reviewed. Present illness and pre-op diagnosis were confirmed. The planned surgery / procedure was verified with the patient / legal guardian. The patient's general health condition remains unchanged RELEVANT COMORBID CONDITIONS RESP (+) Asthma Mild Intermittent (HCC) Nervous (+) Migraine Headache (+) Pelvic And Perineal Pain Genitourinary (+) Abnormal Uterine And Vaginal Bleeding Unspecified Other (+) Angioedema Hereditary (HCC) OBJECTIVE PHYSICAL EXAMINATION Airway (HEENT) Mallampati: III TM Distance: >3 FB Neck ROM: Full Cardiovascular Rhythm: Regular Rate: Normal Pulmonary Pulmonary Assessment: Clear and non labored General / Constitutional Constitutional Assessment: Obese General State of Health:: calm Neurological Neurologic Assessment: alert Dental Dental Assessment: dentition intact ASSESSMENT / PLAN ANESTHESIA PLAN ASA: 2 Anesthesia Plan: general Patient seen and allergies reviewed, anesthesia plan and risks discussed directly with patient /legal guardian or through an sample tester grinder. The use of blood products not discussed Approval to Proceed: approved for anesthesia documented in this encounter Plan of Treatment Upcoming Encounters Date Type Department Care Team (Latest Contact Info) Description 10/09/2023 9:45 AM CDT Comprehensive Visit Department of Endocrinology in [place], [place] [address] [place] [phone] Fidencio Ojeda M.D. [address] [place] [address] Discharge Disposition: Home or Self Care documented as of this encounter Procedures Procedure Name Priority Date/Time Associated Diagnosis Comments LDA ANE ENDOTRACHEAL AIRWAY Routine 08/11/2023 9:23 AM CDT documented in this encounter Results * LDA ANE ENDOTRACHEAL AIRWAY (08/11/2023 9:23 [...] ETT location: oral VL device: glide scope [place] scope blade size: 3 Tube size: 7 [...] complications Milton Chamberlain M.D. ANESTHESIA ORDERABLE S documented in this encounter Visit Diagnoses Not on filedocumented in this encounter Administered Medications Inactive Administered Medications - up to 3 most recent administrations Medication Order MAR Action Action Date Dose Rate Site dexAMETHasone injection (DECADRON) intravenous, As needed, Starting on Mon08/11/23 at 0930, Anesthesia Intra-op Given 08/11/2023 9:30 AM CDT 8 mg fentaNYL injection (SUBLIMAZE) intravenous, As needed, Starting on Mon08/11/23 at 0920, Anesthesia Intra-op Given 08/11/2023 9:46 AM CDT 50 mcg Given 08/11/2023 9:20 AM CDT 50 mcg ketorolac injection (TORADOL) intravenous, As needed, Starting on Mon08/11/23 at 1022, Anesthesia Intra-op Given 08/11/2023 10:22 AM CDT 15 mg Lactated Ringer's intravenous, Continuous Infusion: Per Instructions PRN, Starting on Mon08/11/23 at 0915, Anesthesia Intra-op New Bag 08/11/2023 9:15 AM CDT lidocaine (PF) (cardiac) injection intravenous, As needed, Starting on Mon08/11/23 at 0920, Anesthesia Intra-op Given 08/11/2023 9:20 AM CDT 80 mg midazolam (PF) injection (VERSED) intravenous, As needed, Starting on Mon08/11/23 at 0914, Anesthesia Intra-op Given 08/11/2023 9:14 AM CDT 2 mg ondansetron (PF) injection (ZOFRAN) intravenous, As needed, Starting on Mon08/11/23 at 1022, Anesthesia Intra-op Given 08/11/2023 10:22 AM CDT 4 mg propofoL injection (DIPRIVAN) intravenous, As needed, Starting on Mon08/11/23 at 0921, Anesthesia Intra-op Given 08/11/2023 9:21 AM CDT 150 mg rocuronium injection (ZEMURON) intravenous, As needed, Starting on Mon08/11/23 at 0920, Anesthesia Intra-op Given 08/11/2023 9:38 AM CDT 30 mg Given 08/11/2023 9:20 AM CDT 10 mg succinylcholine (PF) injection (ANECTINE) intravenous, As needed, Starting on Mon08/11/23 at 0921, Anesthesia Intra-op Given 08/11/2023 9:21 AM CDT 120 mg sugammadex injection (BRIDION) intravenous, As needed, Starting on Mon08/11/23 at 1029, Anesthesia Intra-op Given 08/11/2023 10:29 AM CDT 200 mg documented in this encounter Additional Health Concerns Assessment Noted Time PHQ-9 Depression Total Score: 8 03/19/20 21 1:30 PM CDT documented as of this encounter Care Teams Supervisor Garage Relationship Specialty Start Date End Date Jovita Salazar D.O., M.S. [address] [place] [phone] PCP - General Family Medicine 11/10/22 documented as of this encounter
--- OUTSIDE RECORDS SUMMARY | 2023-09-16 11:24 | XMS_ITS | Encounter Summary ---
Author Name Unknown Organization [facility] Address [address] [place] [address] Care Team Providers Care Oil House Attendant Name Role Phone Jovita Salazar D.O., M.S. Primary Care Provide r Reason for Visit * Reason Onset Date Comments Communication 09/15/2023 Encounter Details Date Type Department Care Team (Late st Contact Info) Description 09/15/2023 Clinical Communication Department of Family Medicine, [facility], in [place], [place] [address] [place] [phone] Jovita Salazar D.O., M.S. [address] [place] [phone] Communication Social History Tobacco Use Types Packs/Day Years [...] your living situation today? I have a [facility] place to live 12/27/2022 Sex and Gender Information Value Date Recorded Sex Assigned at Female 12/27/2022 12:50 AM CDT Gender Identity Female 12/27/2022 12:50 AM CDT Sexual Orientation Straight 12/27/2022 12 :50 AM CDT documented as of this encounter Plan of Treatment Upcoming Encounters Date Type Department Care Team (Latest Contact Info) Description 10/09/2023 9:45 AM CDT Comprehensive Visit Department of Endocrinology in [place], [place] [address] [place] [phone] Fidencio Ojeda M.D. [address] [facility] [place] [address] Discharge Disposition: Home or Self Care documented as of this encounter Visit Diagnoses Not on filedocumented in this encounter Additional Health Concerns Assessment Noted Time PHQ-9 Depression Total Score: 8 03/19/20 21 1:30 PM CDT documented as of this encounter Care Teams Oil House Attendant Relationship Specialty Start Date End Date Jovita Salazar D.O., M.S. [address] [place] [phone] PCP - General Family Medicine 11/10/22 documented as of this encounter
--- OUTSIDE RECORDS SUMMARY | 2023-09-16 11:24 | XMS_ITS | Encounter Summary ---
Author Name Unknown Organization [facility] Address [address] [place] [address] Care Team Providers Care Timber Sprinkler Name Role Phone Jovita Salazar D.O. M.S. Primary Care Provide r Reason for Referral * Outpatient (Routine) - Closed Specialty Diagnoses / Procedures Referred By Myron t Referred To Contact Obstetrics and Gynecology Chalino Mata M.D. [address] [place] [phone] [facility] Region Referral ID Status Reason Start Date Expiration Date Visits Re quested Visits Authorized [id number] Closed 08/30/2023 02/28/2025 1 1 Scheduling Instructions Post op Reason for Visit * Reason Onset Date Comments Nurse Assessment 08/30/2023 Post op Encounter Details Date Type Department Care Team (Latest Contact Info) Description 08/30/2023 Clinical Communication Department of Obstetrics and Gynecology in [place], [place] [address] [place] [phone] Yvonne Tam RKeaton [address] [place] [address] Nurse Assessment (Post op) Social History Tobacco Use Types Packs/Day Years [...] your living situation today? I have a [facility] place to live 12/27/2022 Sex and Gender Information Value Date Recorded Sex Assigned at Female 12/27/2022 12:50 AM CDT Gender Identity Female 12/27/2022 12:50 AM CDT Sexual Orientation Straight 12/27/2022 12 :50 AM CDT documented as of this encounter Miscellaneous Notes * Telephone Encounter - Yvonne Tam R.N. - 08/30/2023 12:55 PM CDT Called and spoke with Anna. Pt has been having continued right sided pain and discomfort since surgery on 08/11/23. She states she gets intermittent sharp pain that lasts about 10 minutes and then it always a deep ache and cramping that medication does not help. She has been eating Tylenol and Motrin. Pt had IUD placed at time of procedure on 08/10. She states she started bleeding on 08/12 and hasbeen bleeding since. It is mostly with wiping but does wear a pad for some small amount in between.Re-assured patient this is normal with IUD for 3-6 months and discussed checking for strings monthly. Added to schedule on 08/31/23 for appointment. documented in this encounter Plan of Treatment Upcoming Encounters Date Type Department Care Team (Latest Contact Info) Description 10/09/2023 9:45 AM CDT Comprehensive Visit Department of Endocrinology in [place], [place] [address] [place] [phone] Fidencio Ojeda M.D. [address] [place] [phone] Discharge Disposition: Home or Self Care Scheduled Referrals Name Type Priority Associated Diagnoses Order Schedule Obstetrics and Gynecology office visit (clinic) Outpatient Referral Routine Expected: 08/31/2023, Expires: 11/28/2024 documented as of this encounter Visit Diagnoses Not on filedocumented in this encounter Additional Health Concerns Assessment Noted Time PHQ-9 Depression Total Score: 8 03/19/20 21 1:30 PM CDT documented as of this encounter Care Teams Timber Sprinkler Relationship Specialty Start Date End Date Jovita Salazar D.O., M.S. [address] [place] [phone] PCP - General Family Medicine 11/10/22 documented as of this encounter
--- OUTSIDE RECORDS SUMMARY | 2023-09-16 11:25 | XMS_ITS | Encounter Summary ---
Author Name Unknown Organization [facility] Address [address] [place] [address] Care Team Providers Care Manager Testing Name Role Phone Jovita Salazar D.O., M.S. Primary Care Provide r Reason for Visit * Reason Comments COVID Inquiry Pt wanted covid/infl uenza swab. Nurse only visit Encounter Details Date Type Department Care Team (Late Contact Info) Description 06/11/2023 1:23 AM RAILWAY SIGNALLING ENGINEER - 06/11/2023 1:37 AM RAILWAY SIGNALLING ENGINEER Emergency [facility] [address] [place] [phone] Discharge Disposition: Home or Self Care Social [...] your living situation today? I have a [facility] place to live 12/27/2022 Sex and Gender Information Value Date Recorded Sex Assigned at Female 12/27/2022 12:50 AM CDT Gender Identity Female 12/27/2022 12:50 AM CDT Sexual Orientation Straight 12/27/2022 12 :50 AM CDT documented as of this encounter Medications at Time of Discharge Medication Sig Dispensed Refills Start Date End Date acetaminophen (TYLENOL) 500 mg tablet Take 2 tablets (1,000 mg total) by mouth every 6 (six) hours. 05/20/2021 cyclobenzaprine (FLEXERIL) 10 mg tabletIndications:Mass Adnexal Take 1 tablet (10 mg total) by mouth 3 (three) times a day as needed for muscle spasms. 30 tablet 04/11/2023 EPINEPHrine 0.3 mg/0.3 mL injection syringe Inject 0.3 mg intramuscularly. 05/01/2017 icatibant (FIRAZYR) 30 mg/3 mL injection Inject subcutaneous once daily if needed. 06/01/2016 qgciuyuldatb-orpg-ZM (CENTRUM COMPLETE) 18-400 mg-mcg per tablet Take 1 tablet by mouth daily. omega 7-jgh-qtg-fish oil (fish oil) 100-160-1,000 mg capsule Take 1 capsule by mouth daily. 12/22/2015 SUMAtriptan (IMITREX) 6 mg/0.5 mL injection Inject 6 mg under the skin as needed. 05/02/2017 ketorolac (TORADOL) 10 mg tablet Take 1 tablet (10 mg total) by mouth every 6 (six) hours as needed for pain. 20 tablet 04/07/2023 08/11/2023 ondansetron (Zofran) 4 mg tablet Take 1 tablet (4 mg total) by mouth every 8 (eight) hours as needed for nausea or vomiting. 40 tablet 3 03/15/2023 08/11/2023 ondansetron ODT (ZOFRAN-ODT) 4 mg disintegrating tablet Dissolve 1 tablet in the mouth every 8 (eight) hours as needed. 04/20/2022 08/11/2023 documented as of this encounter Plan of Treatment Upcoming Encounters Date Type Department Care Team (Latest Contact Info) Description 10/09/2023 9:45 AM CDT Comprehensive Visit Department of Endocrinology in [place], [place] [address] [place] [phone] Fidencio Ojeda M.D. [address] [place] [address] Discharge Disposition: Home or Self Care documented as of this encounter Procedures Procedure Name Priority Date/Time Associated Diagnosis Comments SARS COV-2,INFLUENZA A/B,RSV,PCR, V STAT 06/11/2023 1:34 AM RAILWAY SIGNALLING ENGINEER documented in this encounter Results * SARS CoV-2, Influenza A/B, RSV, PCR Symptomatic (06/11/2023 1:34 AM RAILWAY SIGNALLING ENGINEER) Influenza A, PCR Undetected Undetected 06/11/19 2:15 AM RAILWAY SIGNALLING ENGINEER AUST Comment:Influenza A viral RN A absent. Influenza B, PCR Undetected Undetected 06/11/19 2:15 AM RAILWAY SIGNALLING ENGINEER AUST Comment:Influenza B viral RN A absent. Respiratory Syncytial Virus, PCR Undetected Undetected 06/11/2023 2:15 AM RAILWAY SIGNALLING ENGINEER AUST Comment:RSV RNA absent. SARS-Coronavirus -2, PCR Undetected Undetected 06/11/2023 2:15 AM RAILWAY SIGNALLING ENGINEER AUST Comment: SARS-CoV-2 RNA absent. ?? ----ADDITIONAL INFORMATION---- This RT-PCR test using the Xpert Xpress SARS-CoV-2/Flu/RSV assay ([employer] performed on the [employer] systems has received Emergency Use Authorization (EUA) by the U.S. Food and Drug Administration. Performance characteristics were verified by [facility] in a manner consistent with CLIA requirements. Fact sheets for this Emergency Use Authorization (EUA) assay can be found at the following links: For Healthcare Providers: https://www.fda.gov/media/257679/download For Patients: https://www.fda.gov/media/062528/download Specimen Source Swab, Nasopharynx 06/11/2023 1:37 AM RAILWAY SIGNALLING ENGINEER AUST Swab (Nasopharynx) 06/11/2023 1:34 AM RAILWAY SIGNALLING ENGINEER 06/11/2023 1:37 AM RAILWAY SIGNALLING ENGINEER Anthony Ford M.D. LAB MICROBIOLOGY - G ENERAL ORDERABLES [facility] [address] [place] [address], [facility] AUST Kate Lab - [facility] [address] [place] [address] documented in this encounter Visit Diagnoses Not on filedocumented in this encounter Additional Health Concerns Infection Onset Date Last Indicated Resolved Time COVID19 Pending 06/11/2023 06/11/2023 06/11/2023 2 :15 AM RAILWAY SIGNALLING ENGINEER Assessment Noted Time PHQ-9 Depression Total Score: 8 03/19/20 21 1:30 PM CDT documented as of this encounter Care Teams Manager Testing Relationship Specialty Start Date End Date Jovita Salazar D.O., M.S. [address] [place] [phone] PCP - General Family Medicine 11/10/22 documented as of this encounter
--- OUTSIDE RECORDS SUMMARY | 2023-09-16 11:25 | XMS_ITS | Encounter Summary ---
Author Name Unknown Organization [facility] Address [address] [place] [address] Care Team Providers Care Boiler Riveter Name Role Phone Jovita Salazar D.O., M.S. Primary Care Provide r Encounter Details Date Type Department Care Team (Late st Contact Info) Description 05/30/2023 Clinical Communication Department of Endocrinology in [place], [place] [address] [place] [phone] Fidencio Ojeda M.D. [address] [place] [phone] Social History Tobacco Use Types Packs/Day Years [...] your living situation today? I have a [facility] place to live 12/27/2022 Sex and Gender Information Value Date Recorded Sex Assigned at Female 12/27/2022 12:50 AM CDT Gender Identity Female 12/27/2022 12:50 AM CDT Sexual Orientation Straight 12/27/2022 12 :50 AM CDT documented as of this encounter Miscellaneous Notes * Telephone Encounter - Fabby Castanon, L.P.N. - 06/05/2023 1:25 PM OWNER SPA DIRECTOR Lab Results Component Value Date TSH 1.5 01/06/2023 THYROIDAB 112.0 (H) 01/06/[address] Ojeda. R SPA DIRECTOR documented in this encounter Plan of Treatment Upcoming Encounters Date Type Department Care Team (Latest Contact Info) Description 10/09/2023 9:45 AM CDT Comprehensive Visit Department of Endocrinology in [place], [place] [address] [place] [phone] [facility]idenc[facility].D. [address] [facility] [phone] Discharge Disposition: Home or Self Care documented as of this encounter Visit Diagnoses Not on filedocumented in this encounter Additional Health Concerns Infection Onset Date Last Indicated Resolved Time COVID19 Pending 06/11/2023 06/11/2023 06/11/2023 2 :15 AM OWNER SPA DIRECTOR Assessment Noted Time PHQ-9 Depression Total Score: 8 03/19/20 1:30 PM CDT documented as of this encounter Care Teams Boiler Riveter Relationship Specialty Start Date End Date Jovita Salazar D.O., M.S. [address] [place] [phone] PCP - General Family Medicine 11/10/22 documented as of this encounter
--- OUTSIDE RECORDS SUMMARY | 2023-09-16 11:25 | XMS_ITS | Clinical Summary ---
Author Name Unknown Organization [facility] Address [address] [place] [address] Care Team Providers Care Firewood Cutter Name Role Phone Tea Barragan Primary Care Provider [phone] Source Comments You are receiving this document as you are listed as the primary care provider,follow-up provider, or the patient has been referred to you for consultation.This is in compliance with the Medicare andMedicaid EHR Incentive Program,which states Providers who transition their patient to another setting of careor provider of care or refers their patient to another provider of care shouldprovide summary care record for each transition of care or referral. [facility] Allergies Active Allergy Reactions Criticality Noted Date Comments Diphenhydramine Other, see comments 10/20/2015 panic Feels like heavy in chest - both po and IV Feels like heavy in chest - both po and IV Gramineae Pollens Other, see comments 5 Itchy watery eyes Oxycodone Gastrointestinal,Hea dac he Medium 10/25/2016 Medications Medication Sig Dispensed Refills Start Date End Date Status acetaminophen (TYLENOL) 500 MG tablet Take 2 Tablets (1,000 mg) by mouth every 6 hours. 05/20/2021 Active hyoscyamine (LEVSIN) 0.125 MG tablet Take 2 Tablets (0.25 mg) by mouth every 4 hours. 09/13/2022 Active ondansetron (ZOFRAN-ODT) [address] 2 Tablets (8 mg) under tongue every 8 hours as needed. 09/08/2022 Active Multiple Vitamins-Minerals (WOMENS MULTIVITAMIN) TABS Take 1 Each by mouth daily. Active ketorolac (TORADOL) 10 MG tablet Take 1 Tablet (10 mg) by mouth every 6 hours as needed for Pain. 4 Tablet 09/13/2022 Active HYDROmorphone (DILAUDID) 2 MG tablet Take 1 Tablet (2 mg) by mouth every 4 hours as needed. 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 Immunizations Name Administration Dates Next Due 4vHPV (Gardasil) 06/12/2008,01/31/2008, 8 HPV, Unspecified Formulation 11/19/2008,07/21/19 09,05/22/2008 Td 10/07/2006 Tdap 03/19/2021,12/20/2012 Family History Medical History Relation Name Comments Multiple Sclerosis Maternal Grandmother Cancer, Colon Paternal Grandmother Cancer, Thyroid Paternal Grandmother Diabetes Sister Relation Name Status Comments Maternal Grandmother Paternal Grandmother Sister Social History Tobacco Use Types Packs/Day Years Used Date Smoking Tobacco: Never Smokeless Tobacco: Never Alcohol Use Standard Drinks/Week Comments Not Currently 0 (1 standard drink = 0.6 oz pur e alcohol) Depression Answer Date Recor ded Last EPDS Total Score 6 11/19/2021 Last EPDS Self Harm Result 0-->never 11/19 Sex and Gender Information Value Date Recorded Sex Assigned at Not on file Gender Identity Not on file Sexual Orientation Not on file Last Filed Vital Signs Vital Sign Reading Time Taken Comments Blood Pressure 101/71 09/13/2022 8:07 AM CDT Pulse 88 09/13/2022 8:07 AM CDT Temperature 36.3 ??C (97.4 ??F) 10/22/2013 1:47 PM CD T Respiratory Rate 16 10/22/2013 1:47 PM CDT Oxygen Saturation 98% 10/22/2013 1:47 PM CDT Inhaled Oxygen Concentration - - Weight 101.6 kg (224 lb) 09/13/2022 8:07 AM CDT Height 162.6 cm (5' 4) 09/13/2022 8:07 AM CDT Body Mass Index 38.45 09/13/2022 8:07 AM CDT Plan of Treatment Health Maintenance Due Date Last Done Comments Cervical Cancer Screening Due 1993 Hep C Screening (Preventive Services) 1993 HIV Screening (Preventive Services) 2009 Adult Preventive Visit 10/28/2011 HepB (1) 2012 COVID-19 Vaccine (2022-24 season) 2023 Influenza (#1) 2023 DTaP/Tdap/Td (4 - Tdap) 03/19/2031 03/19/20 21, 12/20/2012, 10/07/2006 Zoster/Shingles (1 of 2) 10/28/2043 HPV Vaccine Completed 11/19/2008, 05/2008, 06/12/2008, Additional history exists HepA Aged Out No longer eligi ble based on patient's age to complete this topic Hib Aged Out No longer eligi ble based on patient's age to complete this topic IPV (Polio) Aged Out No longer eligi ble based on patient's age to complete this topic MCV4 Aged Out No longer eligi ble based on patient's age to complete this topic Pneumococcal Aged Out No longer eligi ble based on patient's age to complete this topic Care Teams Firewood Cutter Relationship Specialty Start Date End Date Tea Barragan [address] [place], [place] [id number] PCP - General Orthopedics 01/20/15
--- OUTSIDE RECORDS SUMMARY | 2023-09-16 11:25 | XMS_ITS | Encounter Summary ---
Author Name Unknown Organization [facility] Address [address] [place] [address] Care Team Providers Care Front Desk Supervisor Name Role Phone Jovita Salazar D.O. M.S. Primary Care Provide r Reason for Referral * Outpatient (Routine) - Closed Specialty Diagnoses / Procedures Referred By Contac t Referred To Contact Diagnoses Endometriosis Procedures US Pelvis Transvaginal Chalino Mata M.D. [address] [place] [phone] [facility] Region Referral ID Status Reason Start Date Expiration Date Visits Re quested Visits Authorized [id number] Closed 05/30/2023 05/29/2024 1 1 COATER Reason for Visit * Outpatient (Routine) - Closed Specialty Diagnoses / Procedures Referred By Myron lopez Referred To Contact Diagnoses Endometriosis Procedures US Pelvis Transvaginal Chalino Mata M.D. [address] [place] [phone] [facility] Region Referral ID Status Reason Start Date Expiration Date Visits Re quested Visits Authorized [id number] Closed 05/30/2023 05/29/2024 1 1 Encounter Details Date Type Department Care Team (Latest Contact Info) Description 06/07/2023 8:51 AM TOP COATER - 06/07/2023 11:59 PM TOP COATER Hospital Encounter Department of Radiology in [place], [place] [address] [phone] Chalino Mata M.D. [address] [place] [phone] Endometriosis Discharge Disposition: Home or Self Care Social [...] your living situation today? I have a [facility] place to live 12/27/2022 Sex and [...] Inject subcutaneous once daily if needed. 06/01/2016 kecmqkauhcza-tefj-JV (CENTRUM COMPLETE) 18-400 mg-mcg per tablet Take 1 tablet by mouth daily. omega 4-nqw-ttc-fish oil (fish oil) 100-160-1,000 mg capsule Take [...] CDT Comprehensive Visit Department of Endocrinology in [place], [place] [address] [place] [phone] Fidencio Ojeda M.D. [address] [place] [phone] Discharge Disposition: Home or Self Care documented as of this encounter Procedures Procedure Name Priority Date/Time Associated Diagnosis Comments US PELVIS TRANSVAGINAL RAD - Routine (most inpatients and all outpatients) 06/07/2023 10:08 AM TOP COATER Endometriosis documented in this encounter Results * US Pelvis Transvaginal (06/07/2023 10:08 AM TOP COATER) Anatomical Region Laterality Modality Pelvis, Ultrasound RST LOS, Ultrasound ARZ LOS, Ultrasound FLA LOS N/A Ultrasound Impressions 06/07/2023 10:15 AM TOP COATER 1. Lower anterior scar. Otherwise unremarkable appearance of the uterus. 2. Normal sonographic appearance of the right ovary. The left ovary was obscured by overlying bowel gas and not visualized. Narrative 06/07/2023 10:15 AM TOP COATER EXAM: US PELVIS TRANSVAGINAL COMPARISON: Ultrasound pelvis 01/25/2023 TECHNIQUE: Transvaginal. Transvaginal exam performed to better visualize the uterus and/or adnexal regions. FINDINGS: Uterus: 3.4 cm x 4.8 cm x 7.3 cm. Anteverted. Myometrium: Lower anterior scar Endometrium: Normal. Thickness: 10 mm. Cervix: Nabothian cysts. Right ovary: Normal. ??Ovarian volume: 3 ml. Left ovary: Obscured by overlying bowel gas and not visualized. Intraperitoneal Fluid: None. Procedure Note Chris Anderson M.D. - 06/07/2023 EXAM: US PELVIS TRANSVAGINAL COMPARISON: Ultrasound pelvis 01/25/2023 TECHNIQUE: Transvaginal. Transvaginal exam performed to better visualizethe uterus and/or adnexal regions. FINDINGS: Uterus: 3.4 cm x 4.8 cm x 7.3 cm. Anteverted. Myometrium: Lower anterior scar Endometrium: Normal. Thickness: 10 mm. Cervix: Nabothian cysts. Right ovary: Normal. Ovarian volume: 3 ml. Left ovary: Obscured by overlying bowel gas and not visualized. Intraperitoneal Fluid: None. IMPRESSION: 1. Lower anterior scar. Otherwise unremarkable appearance of theuterus. 2. Normal sonographic appearance of the right ovary. The left ovary wasobscured by overlying bowel gas and not visualized. Chalino Mata M.D. IMRenato US PROCEDURES documented in this encounter Visit Diagnoses Diagnosis Endometriosis documented in this encounter Additional Health Concerns Assessment Noted Time PHQ-9 Depression Total Score: 8 03/19/20 21 1:30 PM CDT documented as of this encounter Care Teams Front Desk Supervisor Relationship Specialty Start Date End Date Jovita Salazar D.O., M.S. [address] [place] [phone] PCP - General Family Medicine 11/10/22 documented as of this encounter
--- OUTSIDE RECORDS SUMMARY | 2023-09-16 11:25 | XMS_ITS | Encounter Summary ---
Author Name Unknown Organization [facility] Address [address] [place] [address] Care Team Providers Care Rn Relief Charge Name Role Phone Jovita Salazar D.O., M.S. Primary Care Provide r Encounter Details Date Type Department Care Team (Late st Contact Info) Description 05/30/2023 Clinical Communication Department of Family Medicine, [facility], in [place], [place] [address] [place] [phone] Jovita Salazar D.O., M.S. [address] [place] [phone] Social History Tobacco Use Types Packs/Day Years [...] living situation today? I have a [facility] place to live 12/27/2022 Sex and Gender Information Value Date Recorded Sex Assigned at Female 12/27/2022 12:50 AM CDT Gender Identity Female 12/27/2022 12:50 AM CDT Sexual Orientation Straight 12/27/2022 12 :50 AM CDT documented as of this encounter Miscellaneous Notes * Telephone Encounter - May Durand R.N. - 05/30/2023 3:45 PM GARDEN EQUIPMENT MECHANIC See portal message communication. EN EQUIPMENT MECHANIC documented in this encounter Plan of Treatment Upcoming Encounters Date Type Department Care Team (Latest Contact Info) Description 10/09/2023 9:45 AM CDT Comprehensive Visit Department of Endocrinology in [place], [place] [address] [place] [phone] Fidencio Ojeda M.D. [address] [facility] [place] [address] Discharge Disposition: Home or Self Care documented as of this encounter Visit Diagnoses Not on filedocumented in this encounter Additional Health Concerns Infection Onset Date Last Indicated Resolved Time COVID19 Pending 06/11/2023 06/11/2023 06/11/2023 2 :15 AM GARDEN EQUIPMENT MECHANIC Assessment Noted Time PHQ-9 Depression Total Score: 8 03/19/20 21 1:30 PM CDT documented as of this encounter Care Teams Rn Relief Charge Relationship Specialty Start Date End Date Jovita Salazar D.O., M.S. [address] [place] [phone] PCP - General Family Medicine 11/10/22 documented as of this encounter
[2023-09-16 11:40] LABS: Bacteria Urine Moderate; Squamous Epithelial Cell Urine Few (None-Few)
[2023-09-16 11:42] LABS: Chloride* 107 mmol/L (96-114); Potassium* 3.8 mmol/L (3.6-5.1); Sodium* 141 mmol/L (135-149)
[2023-09-16 11:45] LABS: Anion Gap 9 mEq/L (7-15); Blood Urea Nitrogen* 8 mg/dL (5-24); Carbon Dioxide* 25 mmol/L (20-32); Creatinine* 0.6 mg/dL (0.5-1.5); Est. Creatinine Clearance* 119.47; Estimated Glomerular Filt Rate 125 ml/min; Glucose* 96 mg/dL (60-115)
[2023-09-16 11:46] LABS: Calcium* 9.4 mg/dL (8.4-10.6)
[2023-09-16 13:16] VITALS: BP 120/72; PULSE 72; RESP 16; O2SAT 98
== END 2023-09-16 13:36 | disposition home or self-care (01) ==
PROVIDERS: Emergency Provider Student in an Organized Health Care Education/Training Program
DX: N39.0 Urinary tract infection, site not specified (principal); B96.5 Pseudomonas (aeruginosa) (mallei) (pseudomallei) as the cause of diseases classified elsewhere
CPT/HCPCS: 36415; 74177; 80048; 81001; 81025; 85025; 87086; 87186; 96374; 96375; 96376; 99283; 99284; J2270; J2405; J7120; Q9967